=== PATIENT | female | born 1940 | race Caucasian/White ===

== ENCOUNTER 2018-12-10 11:39 | Inpatient (IN) | payer OTHER ==
[2018-12-10] MEDS ORDERED: NS 1,000 ML IV ONE (11:52)
[2018-12-10] MEDS ORDERED: ASPIRIN EC 325 MG TAB PO ONE ×2 (11:52→12:16)
[2018-12-10] MEDS ORDERED: DIAZEPAM 5 MG TAB PO ONE (11:52)
[2018-12-10] MEDS ORDERED: FAMOTIDINE 20 MG TAB PO ONE (11:52)
[2018-12-10] MEDS ORDERED: diphenhydrAMINE 25 MG CAP PO ONE ×2 (11:52→12:15)
[2018-12-10] MEDS ORDERED: FAMOTIDINE 20 MG TAB ONE (12:15)
[2018-12-10] MEDS ORDERED: DIAZEPAM 5 MG TAB ONE (12:16)
[2018-12-10 12:38] LABS: PLATELET COUNT 233 10^3/uL (150-400)
[2018-12-10 13:03] LABS: INR 1.04 (0.83-1.16); PROTIME(PATIENT) 13.2 SEC (12.0-15.0)
--- NOTE | 2018-12-10 13:52 | PDGENHP ---
History & Physical Chief Complaint: FAITH History of Present Illness: 78-year-old female with chronic mitral regurgitation status post endocarditis over 10 years ago with complaints of increasing dyspnea as well as progressive tricuspid regurgitation pulmonary hypertension. Known chronic atrial fibrillation. She presents today for preoperative left heart catheterization in anticipation of mitral valve replacement, tricuspid ring and Gilliam Maze procedure. Pertinent Past, Social, Family History: Past medical history: Chronic atrial fibrillation, mitral regurgitation, history of CVA, hyperlipidemia, obstructive sleep apnea, tricuspid regurgitation, moderate pulmonary hypertension. Relevant Physical Exam: Awake, alert, appropriate. No apparent distress. Lungs clear to auscultation anteriorly. Cardiac exam S1-S2, irregular regular. 3/6 systolic murmur at apex. Abdomen soft nontender. No evidence of lower extremity edema Cardiorespiratory Assessment: Rate controlled atrial fibrillation. Three of 6 systolic murmur at apex. Lungs clear to auscultation bilaterally
[2018-12-10] MEDS ORDERED: LIDOCAINE 1% 300 MG/30 ML SDV ONE (13:54)
[2018-12-10] MEDS ORDERED: IOPAMIDOL (ISOVUE-370) 150 ML BTL IV ONE (13:55)
[2018-12-10] MEDS ORDERED: fentaNYL 100 MCG/2 ML INJ ONE (13:55)
[2018-12-10] MEDS ORDERED: MIDAZOLAM 2 MG/2 ML VIAL ONE (13:55)
[2018-12-10] MEDS ORDERED: NITROGLYCERIN 0.4 MG BTL SL PRN (15:54)
[2018-12-10] MEDS ORDERED: OXYCODONE/APAP 5/325 TAB PO PRN (15:54)
[2018-12-10] MEDS ORDERED: ONDANSETRON 4 MG/2 ML VIAL IVP PRN (15:54)
[2018-12-10] MEDS ORDERED: ATROPINE SULFATE 1 MG/10 ML SYR IVP PRN (15:54)
[2018-12-10] MEDS ORDERED: CARBOXYMETHYLCELLULOSE 1% 0.4 ML DROPERETTE EACHEYE PRN (16:06)
--- NOTE | 2018-12-10 17:28 | CPIP ---
[f rep st] INVASIVE CARDIAC PROCEDURE DATE OF PROCEDURE: 12/10/2018 PROCEDURE PERFORMED: Diagnostic left heart catheterization. INDICATION FOR PROCEDURE: Preoperative left heart catheterization in anticipation of mitral valve dillon rgery, tricuspid valve surgery, and Gilliam-Maze IV procedure scheduled for tomorrow with Dr. Baxter. Patient also has a known history of coronary artery disease with previous PCI to the circumflex vesse l in approximately 2005. DESCRIPTION OF PROCEDURE: After informed consent was obtained, the patient was brought to the [facility] catheterization lab where she was prepped and draped in sterile fashion. Attempts to access the [facility] common femoral artery were unsuccessful, secondary to marked calcification of the right common fe moral artery. Attention was turned to the left common femoral artery. With assistance of my colleague, Dr. Gutierres, a successful cannulation of the 6-Vincentian sheath into the left common femoral artery was obtained wit hout difficulty. A JL4 catheter was used to take images of the left coronary anatomy in multiple pro jections. JL4 catheter was exchanged over a guidewire for a JR4 catheter. JR4 catheter was unable t o successfully cannulate the right coronary artery. The JR4 catheter was exchanged over a guidewire for a Elie right catheter. Elie right catheter was used to cannulate the right coronary jose elias ry. Images of the right coronary anatomy were obtained in multiple projections. Elie right cath eter was removed over a guidewire. Angled pigtail catheter was used to cross the aortic valve. Left ventriculogram was performed. LVEDP was assessed and aortic valve gradient was assessed. Angled pi gtail catheter was removed over a guidewire without complications. FINDINGS: 1. Left main normal size and caliber, trifurcates into left anterior descending, circumflex vessel, as well as small ramus branch. 2. Left main demonstrates no evidence of coronary disease. 3. Left anterior descending artery demonstrates mild luminal irregularities with no evidence of flow -limiting coronary disease. 4. The ramus intermedius branch is free of coronary artery disease. 5. Circumflex vessel demonstrates approximately 20% ostial stenosis. There is a patent stent to the mid circumflex vessel. The circumflex vessel is a dominant vessel. 6. The right coronary artery is a nondominant vessel. There is a 20% to 30% mid smooth RCA stenosis with no evidence of flow-limiting coronary disease. HEMODYNAMICS: LVEF 60% to 65%. Aortic valve gradient none. LVEDP 22 mmHg. CONCLUSIONS: 1. No flow-limiting coronary artery disease. 2. 20% ostial stenosis of the circumflex. 3. Patent stent to the mid circumflex vessel. 4. Mild luminal irregularities within the left anterior descending and nondominant right coronary ar hermann. 5. Normal left ventricular function with left ventricular ejection fraction of 60% to 65%. We will review images with Dr. Baxter prior to surgery. No indication for coronary bypass grafting in the setting of upcoming valve surgery tomorrow. Patient tolerated the procedure well. There were n o postoperative complications. Of note, left common femoral artery angiography demonstrates sheath p lacement at bifurcation. Manual pressure was obtained. /[id number]/MODL
--- NOTE | 2018-12-10 18:21 | PDGENHP ---
History and Physical - Chief Complaint MR, TR, AF - History of Present Illness 78F with MR, TR, AF and diminishing quality of life with planned MR repair/ replacement, TV repair, and Gilliam-Maze on 12/11/18 admitted in advance for risk stratification. Pt is s/p LHC without flow-limiting CAD. History Information - Allergies/Home Medication List Allergies/Adverse Reactions: No Known Allergies Allergy (Verified 12/04/18 10:17) Home Medications: Aspirin [Aspirin 81mg (*)] 162 mg PO DAILY 12/04/18 [Last Taken 12/09/18 08:00] Carboxymethylcellulose 1% [Refresh Celluvisc (*)] 1 drop EACHEYE DAILY PRN 12/04 [Last Taken 12/10/18 08:00] Enoxaparin [Lovenox 60 MG (*)] 60 mg SQ BID 12/04/18 [Last Taken 12/09/18 20:00] Herbals/Supplements -Info Only 1 ea PO DAILY 12/04/18 [Last Taken 12/09/18 08:00 ] [place]-3 Fatty Acids [Fish Oil 1000 mg (*)] 1,000 mg PO BID 12/04/18 [Last Taken 12/09/18 22:00] Simvastatin [Zocor] 20 mg PO HS 12/04/18 [Last Taken 12/09/18 22:00] Spironolactone [Aldactone 25 MG (*)] 12.5 mg PO DAILY 12/04/18 [Last Taken 12/09 08:00] Verapamil ER [Calan SR/ER 120MG (*)] 120 mg PO BID 12/04/18 [Last Taken 08:00] Warfarin Sodium [Coumadin 5MG (*)] 5 mg PO SUWE@18 12/04/18 [Last Taken 18:00] Warfarin Sodium [Coumadin 7.5MG (*)] 7.5 mg PO MOTUTHFRSA@18 12/04/18 [Last Taken 12/03/18 18:00] I have personally reviewed and updated: medical history, social history, surgical history - Past Medical History atrial fibrillation, coronary artery disease, CVA - Surgical History Reports: no pertinent surgical hx - Social History Smoking Status: Never smoked Alcohol Use: None Drug Use: None Review of Systems Review of Systems: ROS: 10pt was reviewed & negative except for what was stated in HPI & below Constitutional: Reports: weakness EENMT: Reports: no symptoms Cardiac: Reports: irregular heart rate Respiratory: Reports: shortness of breath Gastrointestinal: Reports: no symptoms Genitourinary: Reports: no symptoms Muscolosketal: Reports: no symptoms Skin: Reports: no symptoms Neurological: Reports: no symptoms Hematologic/Lymphatic: Reports: no symptoms Immunologic/Allergy: Reports: no symptoms Physical Exam Physical Exam: Temp Pulse Resp BP Pulse Ox 36.6 C 74 17 140/71 H 94 12/10/18 18:04 12/10/18 18:04 12/10/18 18:04 12/10/18 18:04 12/10/18 18:04 Constitutional: no apparent distress, appears nourished, not in pain Eyes: anicteric sclera Ears, Nose, Mouth, Throat: hearing normal Cardiovascular: systolic murmur, irregularly irregular Respiratory: no respiratory distress, no rales or rhonchi, clear to auscultation Gastrointestinal: soft, non-tender abdomen Skin: warm, normal color Musculoskeletal: full muscle strength Neurologic: AAOx3 Psychiatric: interacting appropriately, not anxious, not encephalopathic, thought process linear Lab Data & Imaging Review 12/10/18 12:00 12/10/18 12:00 WBC 5.52 10^3/uL (3.80-9.50) 12/10/18 12:00 RBC 4.20 10^6/uL (4.18-5.33) 12/10/18 12:00 Hgb 12.8 g/dL (12.6-16.3) 12/10/18 12:00 Hct 39.0 % (38.0-47.0) 12/10/18 12:00 MCV 92.9 fL (81.5-99.8) 12/10/18 12:00 MCH 30.5 pg (27.9-34.1) 12/10/18 12:00 MCHC 32.8 g/dL (32.4-36.7) 12/10/18 12:00 RDW 13.2 % (11.5-15.2) 12/10/18 12:00 Plt Count 233 10^3/uL (150-400) 12/10/18 12:00 MPV 9.7 fL (8.7-11.7) 12/10/18 12:00 Neut % (Auto) 66.7 % (39.3-74.2) 12/10/18 12:00 Lymph % (Auto) 20.3 % (15.0-45.0) 12/10/18 12:00 [place] % (Auto) 9.4 % (4.5-13.0) 12/10/18 12:00 Eos % (Auto) 2.9 % (0.6-7.6) 12/10/18 12:00 Baso % (Auto) 0.5 % (0.3-1.7) 12/10/18 12:00 Nucleat RBC Rel Count 0.0 % (0.0-0.2) 12/10/18 12:00 Absolute Neuts (auto) 3.68 10^3/uL (1.70-6.50) 12/10/18 12:00 Absolute Lymphs (auto) 1.12 10^3/uL (1.00-3.00) 12/10/18 12:00 Absolute Monos (auto) 0.52 10^3/uL (0.30-0.80) 12/10/18 12:00 Absolute Eos (auto) 0.16 10^3/uL (0.03-0.40) 12/10/18 12:00 Absolute Basos (auto) 0.03 10^3/uL (0.02-0.10) 12/10/18 12:00 Absolute Nucleated RBC 0.00 10^3/uL (0-0.01) 12/10/18 12:00 Immature Gran % 0.2 % (0.0-1.1) 12/10/18 12:00 Immature Gran # 0.01 10^3/uL (0.00-0.10) 12/10/18 12:00 PT 13.2 SEC (12.0-15.0) 12/10/18 12:00 INR 1.04 (0.83-1.16) 12/10/18 12:00 Sodium 135 mEq/L (135-145) 12/10/18 12:00 Potassium 4.3 mEq/L (3.5-5.2) 12/10/18 12:00 Chloride 104 mEq/L (97-110) 12/10/18 12:00 Carbon Dioxide 23 mEq/l (22-31) 12/10/18 12:00 Anion Gap 8 mEq/L (6-14) 12/10/18 12:00 BUN 23 mg/dL (7-23) 12/10/18 12:00 Creatinine 0.7 mg/dL (0.6-1.0) 12/10/18 12:00 Estimated GFR > 60 12/10/18 12:00 Glucose 91 mg/dL (70-100) 12/10/18 12:00 Hemoglobin A1c 5.2 % (4.0-6.0) 12/10/18 12:07 Estim Average Glucose 103 mg/dL (68-126) 12/10/18 12:07 Calcium 9.6 mg/dL (8.5-10.4) 12/10/18 12:00 Magnesium 2.1 mg/dL (1.6-2.3) 12/10/18 12:00 Triglycerides 52 mg/dL (35-135) 12/10/18 12:00 Cholesterol 170 mg/dL (140-220) 12/10/18 12:00 Cholesterol Risk Factr 0.4 (0.2-1.0) 12/10/18 12:00 LDL Cholesterol, Calc 68 mg/dL (80-100) L 12/10/18 12:00 LDL Risk Factor 0.4 (0.2-1.0) 12/10/18 12:00 VLDL Cholesterol 10 mg/dL (8-25) 12/10/18 12:00 Non-HDL Cholesterol 78 mg/dL (90-129) L 12/10/18 12:00 HDL Cholesterol 92 mg/dL (40-85) H 12/10/18 12:00 LDL/HDL Ratio 0.73 RATIO (1.00-3.22) L 12/10/18 12:00 Cholesterol/HDL Ratio 1.85 RATIO (1.00-4.44) 12/10/18 12:00 Patient ABO/Rh O POSITIVE 12/10/18 12:00 Antibody Screen NEGATIVE 12/10/18 12:00 Imaging Review: ECHO 09/04/18 09/10/2018: Normal size left ventricle. Borderline concentric LV hypertrophy. EF is 65 %. No regional wall motion abnormality. There is mild thickening of the mitral valve leaflets. Moderate to severe mitral regurgitation. Mild aortic cusp calcification is noted. There is no significant aortic valve regurgitation. No aortic valve stenosis is present. Moderate to severe tricuspid valve regurgitation. Right Ventricular systolic pressure is measured at 42 mmHg. No pericardial effusion. Visualized and Interpreted Chest x-ray results: Yes Chest X-Ray results: no infiltrate Visualized and Interpreted imaging results: Yes Interpretation: See LHC and carotid US reports Visualized and Interpreted EKG results: Yes EKG Interpretation: Positive for: other (AF) Assessment & Plan Assessment: 78F with MR/TR/AF Plan: MV repair/replace, TV repair, CM 4 on 12/11
[2018-12-10] MEDS ORDERED: CHLORHEXIDINE GLUC HIBICLENS 118 ML BTL TP SCH (21:00)
[2018-12-10] MEDS: VERAPAMIL ER 120 MG TAB PO SCH (21:36)
--- NOTE | 2018-12-11 05:45 | CPEKG ---
Test Reason : OPEN Blood Pressure : / mmHG Vent. Rate : 068 BPM Atrial Rate : 000 BPM P-R Int : 251 ms QRS Dur : 085 ms QT Int : 481 ms P-R-T Axes : 263 008 087 degrees QTc Int : 512 ms Atrial fibrillation Consider left ventricular hypertrophy Prolonged QT interval Confirmed by Denise Garcia ([id number]) on 12/11/2018 5:44:47 AM Referred By: Arnoldo Aguilera Confirmed By:Denise Garcia
[2018-12-11] MEDS ORDERED: niCARdipine/NACL 200 ML IV ONE (06:00)
[2018-12-11] MEDS ORDERED: MUPIROCIN 2% 22 GM OINT NS ONE (06:00)
[2018-12-11] MEDS ORDERED: AMINOCAPROIC ACID 5 GM/20 ML VIAL IV ONE (06:00)
[2018-12-11] MEDS ORDERED: CARDIOPLEGIC SOLUTION 1,052.8 ML PF ONE (06:00)
[2018-12-11] MEDS ORDERED: PHENYLEPHRINE HCL 50 MG in NS 250 ML IV ONE (06:00)
[2018-12-11] MEDS ORDERED: INSULIN REGULAR HUMAN 100 UNIT in NS 100 ML IV ONE (06:00)
[2018-12-11] MEDS ORDERED: NOREPINEPHRINE BITARTRATE 16 MG in NS 250 ML IV ONE (06:00)
[2018-12-11] MEDS ORDERED: CITRATE DEXTROSE SOLN 500 ML BAG MISC ONE (06:00)
[2018-12-11] MEDS ORDERED: MANNITOL 25% 12.5 GM/50 ML VIAL IVP ONE (06:00)
[2018-12-11] MEDS ORDERED: ceFAZolin 2 GM/DEXTROSE 100 ML IV ONE (06:00)
[2018-12-11] MEDS ORDERED: PROTAMINE SULFATE 50 MG/5 ML VIAL IVP ONE (06:17)
[2018-12-11] MEDS ORDERED: CALCIUM CHLORIDE 1 GM/10 ML INJ ONE ×3 (06:17→06:20)
[2018-12-11] MEDS ORDERED: niCARdipine/NACL/200 ML BAG IV ONE (06:18)
[2018-12-11] MEDS ORDERED: ceFAZolin 1 GM VIAL ONE (06:18)
[2018-12-11] MEDS ORDERED: MILRINONE/DEXTROSE/100 ML BAG IV ONE (06:18)
[2018-12-11] MEDS ORDERED: DOPamine/DEXTROSE 400 MG/250 ML BAG IV ONE (06:18)
[2018-12-11] MEDS ORDERED: ADENOSINE 6 MG/2 ML VIAL ONE (06:18)
[2018-12-11] MEDS ORDERED: NA BICARBONATE 50 MEQ/50 ML VIAL ONE (06:18)
[2018-12-11] MEDS ORDERED: NITROGLYCERIN/D5W 50 MG/250 ML BOTTLE IV ONE (06:18)
[2018-12-11] MEDS ORDERED: AMIODARONE HCL 150 MG/3 ML VIAL ONE ×2 (06:18→06:19)
[2018-12-11] MEDS ORDERED: HEPARIN 10,000 UNIT/10 ML MDV (1,000 UNIT/ML) ONE ×2 (06:18→06:19)
[2018-12-11] MEDS ORDERED: AMINOCAPROIC ACID 5 GM/20 ML VIAL ONE ×2 (06:18→06:19)
[2018-12-11] MEDS ORDERED: methylPREDNISolone SOD SUCC 1 GM/8 ML VIAL ONE (06:19)
[2018-12-11] MEDS ORDERED: CITRATE DEXTROSE SOLN 500 ML BAG ONE (06:19)
[2018-12-11] MEDS ORDERED: LIDOCAINE 2% 100 MG/5 ML SYR ONE (06:19)
[2018-12-11] MEDS ORDERED: SODIUM BICARBONATE 50 MEQ/50 ML SYR ONE (06:19)
[2018-12-11] MEDS ORDERED: ALBUMIN 5% 250 ML BOTTLE IV ONE (06:19)
[2018-12-11] MEDS ORDERED: MAGNESIUM SULFATE 1 GM/2 ML VIAL ONE (06:19)
[2018-12-11] MEDS ORDERED: LR 1,000 ML IV ONE (07:33)
--- NOTE | 2018-12-11 07:50 | PDHPUP ---
History & Physical Update H&P update statement: This history and physical update is based on an assessment of the patient which was completed after admission or registration (within 24 hours), but prior to the surgery/procedure. H&P update: H&P reviewed & patient examined, no change in patient's condition since H&P completed
--- NOTE | 2018-12-11 08:32 | PDANEPAE ---
ANE History of Present Illness here for MVR/TVR ANE Past Medical History - Cardiovascular History Hx Hypertension: Yes Hx Arrhythmias: Yes Hx Chest Pain: No Hx Coronary Artery / Peripheral Vascular Disease: Yes Hx CHF / Valvular Disease: Yes Hx Palpitations: No - Pulmonary History Hx COPD: No Hx Asthma/Reactive Airway Disease: No Hx Recent Upper Respiratory Infection: No Hx Oxygen in Use at Home: Yes O2 in Use at Home (L/minute): CPAP Hx Sleep Apnea: Yes Sleep Apnea Screening Result - Last Documented: Positive Pulmonary History Comment: KATHRYN uses oral device - Neurologic History Hx Cerebrovascular Accident: Yes Hx Seizures: No Hx Dementia: No Neurologic History Comment: 08/02 stroke - Endocrine History Hx Diabetes: No - Renal History Hx Renal Disorders: No - Liver History Hx Hepatic Disorders: No - Neurological & Psychiatric Hx Hx Neurological and Psychiatric Disorders: No - Cancer History Hx Cancer: No - Congenital Disorder History Hx Congenital Disorders: No - GI History Hx Gastrointestinal Disorders: No - Other Health History Other Health History: right leg has cut from shaving. bruises easily - Chronic Pain History Chronic Pain: Yes (lower back pain) - Surgical History Prior Surgeries: cataract L eye 05/12. cataract on r 05/04 ANE Review of Systems Review of systems is: negative Review of Systems: - Exercise capacity METS (RN): 4 METS ANE Patient History - Allergies Allergies/Adverse Reactions: No Known Allergies Allergy (Verified 12/11/18 07:43) - Home Medications Home medications: home medication list seen and reviewed Home Medications: Aspirin [Aspirin 81mg (*)] 162 mg PO DAILY 12/04/18 [Last Taken 12/09/18 08:00] Carboxymethylcellulose 1% [Refresh Celluvisc (*)] 1 drop EACHEYE DAILY PRN 12/04 [Last Taken 12/10/18 08:00] Enoxaparin [Lovenox 60 MG (*)] 60 mg SQ BID 12/04/18 [Last Taken 12/09/18 20:00] Herbals/Supplements -Info Only 1 ea PO DAILY 12/04/18 [Last Taken 12/09/18 08:00 ] [place]-3 Fatty Acids [Fish Oil 1000 mg (*)] 1,000 mg PO BID 12/04/18 [Last Taken 12/09/18 22:00] Simvastatin [Zocor] 20 mg PO HS 12/04/18 [Last Taken 12/09/18 22:00] Spironolactone [Aldactone 25 MG (*)] 12.5 mg PO DAILY 12/04/18 [Last Taken 12/09 08:00] Verapamil ER [Calan SR/ER 120MG (*)] 120 mg PO BID 12/04/18 [Last Taken 08:00] Warfarin Sodium [Coumadin 5MG (*)] 5 mg PO SUWE@18 12/04/18 [Last Taken 18:00] Warfarin Sodium [Coumadin 7.5MG (*)] 7.5 mg PO MOTUTHFRSA@18 12/04/18 [Last Taken 12/03/18 18:00] - NPO status NPO Status: no food or drink >8 hours NPO Since - Liquids (Date): 12/11/18 NPO Since - Liquids (Time): 00:01 NPO Since - Solids (Date): 12/11/18 NPO Since - Solids (Time): 00:01 - Smoking Hx Smoking Status: Never smoked - Alcohol Use Alcohol Use: None - Family Anes Hx Family Hx Anesthesia Complications: none ANE Labs/Vital Signs - Labs Result Diagrams: 12/10/18 12:00 12/10/18 12:00 - Vital Signs Vital Signs: reviewed preoperatively; see RN documention for details Blood Pressure: 133/68 Heart Rate: 73 Respiratory Rate: 18 O2 Sat (%): 92 Height: 162.56 cm Weight: 68.6 kg ANE Physical Exam - Airway Neck exam: FROM Mallampati Score: Class 1 Mouth exam: normal dental/mouth exam - Pulmonary Pulmonary: no respiratory distress - Cardiovascular Cardiovascular: irregularly irregular - ASA Status ASA Status: III ANE Anesthesia Plan Anesthesia Plan: general endotracheal anesthesia Lines/Monitors: arterial line, central line, BECKY
[2018-12-11] MEDS ORDERED: MIDAZOLAM 2 MG/2 ML VIAL IVP ONE (08:40)
[2018-12-11] MEDS ORDERED: MIDAZOLAM 2 MG/2 ML VIAL ONE (08:42)
[2018-12-11] MEDS ORDERED: fentaNYL 250 MCG/5 ML INJ ONE (08:43)
[2018-12-11] MEDS ORDERED: PROPOFOL/EMULSION 500 MG/50 ML BOTTLE IV ONE (08:44)
[2018-12-11] MEDS ORDERED: ROCURONIUM 100 MG/10 ML VIAL ONE (08:44)
[2018-12-11] MEDS ORDERED: MINERAL OIL 10 ML VIAL ONE (09:08)
--- NOTE | 2018-12-11 10:41 | PDMN ---
Medical Necessity Medical necessity: [facility] [place] [id number] Cardiac Valve Replacement or Repair, 5 days: 78 yo s /p heart cath, pending scheduled mitral valve repair, JOHNATHAN BOOTH only
[2018-12-11] MEDS ORDERED: fentaNYL 100 MCG/2 ML INJ ONE (12:20)
[2018-12-11] MEDS ORDERED: ACETAMINOPHEN 650 MG SUPP PR PRN (12:41)
[2018-12-11] MEDS ORDERED: POTASSIUM Cl (KCl) 50 ML IV PRN (12:41)
[2018-12-11] MEDS ORDERED: PANTOPRAZOLE SODIUM 40 MG VIAL IVP ONE (12:41)
[2018-12-11] MEDS ORDERED: LACTULOSE 20 GM/30 ML UDCUP PO PRN (12:41)
[2018-12-11] MEDS ORDERED: BISACODYL 10 MG SUPP PR PRN (12:41)
[2018-12-11] MEDS ORDERED: MAGNESIUM HYDROXIDE 30 ML UDCUP PO PRN (12:41)
[2018-12-11] MEDS ORDERED: ONDANSETRON DISINTEGRATING 4 MG TAB PO PRN (12:41)
[2018-12-11] MEDS ORDERED: SODIUM CL NASAL 45 ML BTL EACHNARE PRN (12:41)
[2018-12-11] MEDS ORDERED: MEPERIDINE 25 MG/0.5 ML AMP IVP PRN (12:41)
[2018-12-11] MEDS ORDERED: CEPACOL LOZENGE PO PRN (12:41)
[2018-12-11] MEDS ORDERED: POLYETHYLENE GLYCOL 3350 17 GM PKT PO PRN (12:41)
[2018-12-11] MEDS ORDERED: METOCLOPRAMIDE 10 MG/2 ML VIAL IVP PRN (12:41)
[2018-12-11] MEDS ORDERED: D50W 25 GM/50 ML SYR IVP PRN (12:41)
[2018-12-11] MEDS ORDERED: niCARdipine/NACL 200 ML IV PRN (12:41)
[2018-12-11] MEDS ORDERED: NS 1,000 ML IV SCH (12:45)
[2018-12-11] MEDS ORDERED: INSULIN REGULAR HUMAN 100 UNIT in NS 100 ML IV SCH (13:00)
[2018-12-11] MEDS: VERAPAMIL ER 120 MG TAB PO SCH (13:00)
--- NOTE | 2018-12-11 13:10 | GOP ---
[f rep st] OPERATIVE REPORT DATE OF OPERATION: 12/11/2018 SURGEON: Sly Baxter DO SAWMILL TALLY CLERK: Yosef ANESTHESIOLOGIST: Rigo. PREOPERATIVE DIAGNOSIS: Congestive heart failure with severe mitral tricuspid insufficiency and long standing persistent atrial fibrillation. POSTOPERATIVE DIAGNOSIS: Congestive heart failure with severe mitral tricuspid insufficiency and jaja gstanding persistent atrial fibrillation. PROCEDURE PERFORMED: 1. Mitral valve repair with a #28 Physio II annuloplasty ring and primary closure of septal perforat ion from healed endocarditis. 2. Tricuspid valve annuloplasty with a 28 mm Rm annuloplasty ring. 3. Gilliam-Maze IV biatrial Maze with testing and sensing. FINDINGS: DESCRIPTION OF PROCEDURE: Patient was consented, brought to the operating room, intubated. Monitori ng lines were placed. She was prepped and draped in sterile classical manner. Sternotomy was perfor med. She was heparinized cannulated with bicaval cannulae and tapes. We then cardioverted her to no rmal sinus rhythm; however, she would not stay in sinus rhythm. We then just tested for exit block o nly with both veins showing no evidence of exit block. We then initiated bypass and then performed r adiofrequency ablation of both pulmonary veins on pump with 3 overlapping lines each line final being less than 5 seconds, with approximately 9 to 12 ablations per pulmonary vein. I then arrested the patient, excised tip of the appendage, and performed ablation across the left atr ium into the left superior pulmonary vein until it was less than 5 seconds. A 50 mm atrial clip was placed across the base of the appendage. We then marked the terminus of the right and left coronary systems on the coronary sinus. We then exposed the left atrium incising all the way over almost to t he pulmonary venous system so that it was more of a cut. Then, an ablation line on the roof and floo r, the completion of that was done with radiofrequency then. We then performed cryoablation of the c oronary sinus and overlapped that for 3 minutes with an endocardial isthmus line. We then inspected the mitral valve. There was evidence of perforation in P2 with 2 small jets that w ere emanating from that. They were closed with 5-0 Prolene. We then placed annuloplasty suture ring s and sized the patient for a 28 mm ring, which was secured with Cor-Knots. The left atrium was clos ed. Rewarming was begun. We then secured caval tapes and did a vertical atriotomy consistent with C ox-4 lesion set and performed the radiofrequency ablation on the free wall, superior and inferior lynda a cava and cryoablation for 2 minutes across the isthmus with the cross-clamp off. We then secured a 28 mm ring with Cor-Knots. with evidence of no regurgitation. The right atrium was closed while the patient was rewarmed with the heart beating in Trendelenburg. We then de-aired the patient through the apex and ascending aorta, and when no further air was identi fied, she was weaned from bypass without difficulty. Both valves were competent without any regurgit ation and no NATE. Heparin was reversed with protamine. Cannula was removed and oversewn. The patie nt was in sinus rhythm, but required atrial pacing. She was returned to ICU in stable condition. /[id number]/MODL
--- NOTE | 2018-12-11 13:23 | POSTANESTH ---
Post Anesthetic Evaluation Cardiovascular Status: Normal, Stable Respiratory Status: Requires Airway Assist Level of Consciousness/Mental Status: Moderately Sleepy Pain Control: Adequate, Prn Tx Ordered Nausea/Vomiting Control: Adequate, Prn Tx Ordered Complications Possibly Related to Anesthesia: None Noted
[2018-12-11] MEDS: ALBUMIN 5% 250 ML IV PRN ×2 (13:30→13:56)
[2018-12-11] MEDS: ceFAZolin 2 GM/DEXTROSE 100 ML IV SCH ×2 (13:52→22:05)
[2018-12-11] MEDS: ONDANSETRON 4 MG/2 ML VIAL IVP PRN ×2 (14:52→22:41)
[2018-12-11] MEDS: fentaNYL 100 MCG/2 ML INJ IVP PRN ×2 (16:43→20:24)
--- NOTE | 2018-12-11 21:06 | GCON ---
[f rep st] CONSULTATION MEAT MOLDER CONSULTATION. REFERRING PHYSICIAN: Sly Baxter DO HISTORY OF PRESENT ILLNESS: I was asked to see patient by Dr. Sly Baxter. The patient was examined postoperatively after receiving mitral valve and tricuspid valve replacements, as well as a Gilliam maze . The patient is a 78-year-old white female with a past medical history of arthritis, atrial fibrillati on, stroke, coronary artery disease, endocarditis, hyperlipidemia, mitral regurgitation, obstructive sleep apnea for which she is using an oral device, and tricuspid regurgitation. Again, she is examin ed postoperatively. The patient is currently sedated and on mechanical ventilation. All history is gleaned from the medical record. Prior to surgery, she had been noting a steady decline in exertiona l activities with worsening breathlessness. REVIEW OF SYSTEMS: Ten-point review of systems was attempted but unable to be performed secondary to sedation and mechanical ventilation. FAMILY HISTORY: Noncontributory. PAST MEDICAL HISTORY: Again, significant for obstructive sleep apnea, tricuspid regurgitation, dunia l regurgitation, hyperlipidemia, uterine fibroids, endocarditis, coronary artery disease, stroke, atr ial fibrillation, arthritis. MEDICATIONS: At home include Coumadin, verapamil, spironolactone, simvastatin, probiotic, fluticason e nasal spray, fish oil, calcium, aspirin, amoxicillin. ALLERGIES: No known allergies to medications. SOCIAL HISTORY: Lifelong never smoker. No significant alcohol use. She is . Her son is at her bedside. She has excellent family support. PHYSICAL EXAM: VITAL SIGNS: Blood pressure is 115/52, pulse 72, respirations 12, temperature 34.4, oxygen saturation 100% on 40%. GENERAL: She is a well-developed, well-nourished, elderly white fema le who is sedated and on mechanical ventilation. HEENT: Eyes are YU. EOMI. Throat: Endotrachea l tube is in good position. NECK: Supple. No cervical adenopathy. HEART: Regular rate and rhythm with a 2/6 systolic murmur at left sternal border without radiation. LUNGS: Diminished breath soun ds but no wheeze. ABDOMEN: Soft, nontender. Bowel sounds are present in all 4 quadrants. EXTREMIT IES: No clubbing, cyanosis, or edema. LABORATORIES: White count is 5.5, hemoglobin 12, hematocrit 39, platelet count 233. INR is 1.04. S odium 135, potassium 4.3, chloride 104, CO2 23, BUN 23, creatinine 0.7, glucose is 91. IMAGING: Chest x-ray: Lungs are clear. Endotracheal tube is in good position. Right internal jugu lar catheter is in good position. IMPRESSION: 1. Atrial fibrillation. 2. Mitral and tricuspid regurgitation. 3. Status post mitral valve replacement, tricuspid valve replacement, and Gilliam maze procedure. 4. Acute respiratory failure secondary to above. 5. History of arthritis. 6. History of stroke. 7. Coronary artery disease. 8. Hyperlipidemia. 9. Obstructive sleep apnea for which she uses an oral device. RECOMMENDATIONS: 1. Wean patient from mechanical ventilation as tolerated. 2. DVT and PE prophylaxis, holding anticoagulation for now. 3. Stress ulcer prophylaxis. 4. Aggressive blood sugar control. 5. PT and OT. 6. Early ambulation. 7. Adequate nutrition. 8. Close cardiovascular monitoring. /[id number]/MODL
[2018-12-11] MEDS: MUPIROCIN 2% 22 GM OINT NS SCH (22:05)
[2018-12-11] MEDS: ACETAMINOPHEN 325 MG TAB PO PRN (22:40)
[2018-12-11] MEDS: HYDROCODONE/APAP 5/325 TAB PO PRN (22:40)
[2018-12-11] MEDS: KETOROLAC 15 MG/1 ML SDV IVP PRN (22:41)
[2018-12-12] MEDS: KETOROLAC 15 MG/1 ML SDV IVP PRN (05:06)
[2018-12-12] MEDS: ceFAZolin 2 GM/DEXTROSE 100 ML IV SCH ×2 (05:07→16:42)
[2018-12-12] MEDS: HYDROCODONE/APAP 5/325 TAB PO PRN ×2 (05:07→09:10)
[2018-12-12] MEDS: ACETAMINOPHEN 325 MG TAB PO PRN ×4 (05:07→21:29)
[2018-12-12 05:58] LABS: PLATELET COUNT 132 10^3/uL (150-400)
[2018-12-12 05:59] LABS: INR 1.16 (0.83-1.16); PROTIME(PATIENT) 14.3 SEC (12.0-15.0)
[2018-12-12] MEDS: HEPARIN 5,000 UNIT/0.5 ML INJ SC SCH ×3 (06:21→21:03)
--- NOTE | 2018-12-12 07:04 | SOAPPROG ---
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 -pre-op EF 65% -CT to bulbs, FC/AL out today -routine TTE closer to discharge Longstanding persistent atrial fibrillation s/p CM4 -underlying rhythm junctional in 30's, BB not appropriate at this time -plan for thromboprophylaxis with coumadin, INR goal 2-3, duration pending stability of SR -previous Coumadin schedule 5 mg SUWE/7.5 mg rest of the week -plan to start coumadin today at 2 mg Acute expected blood loss anemia -stable, 1 pRBC transfused Acute Kidney Injury, stage 1 - preop creatinine 0.7, today 1.1; UOP 325 cc/12 hr - hold nephrotoxic meds-toradol, ancef to q12 - q4 K+ and 1 L NS over 8 hrs Stable CAD -noncritical, patent stent in LCx, no intervention necessary -secondary prevention with ASA/BB/statin when appropriate DVT ppx -heparin until INR 1.8 -SCDs, early ambulation PTOT -to eval and treat Dispo Keep in ICU given ERIKA, pacing requirements Subjective: Doing well. Objective: General: NAD, sitting upright HEENT: CVL IJ, MMM Respiratory: nasal cannula oxygen , no wheezes, crackles Cardiac: paced, no m/r/g, no edema GI: soft, nt, nd : rapp to be removed today Incisions: sternum - CDI Chest tubes: 910/325 serosang Vital Signs Temp Pulse Resp BP Pulse Ox 37.8 C 74 20 115/53 L 94 12/12/18 06:50 12/12/18 06:50 12/12/18 06:50 12/12/18 06:50 12/12/18 06:50 Laboratory Results 12/12/18 05:17 12/12/18 05:17 12/11/18 12/12/18 12/13/18 05:59 05:59 05:59 Intake Total 950 1760 Output Total 1635 Balance 950 125 PT 14.3 SEC (12.0-15.0) 12/12/18 05:17 INR 1.16 (0.83-1.16) 12/12/18 05:17 ICD10 Worksheet Patient Problems: Problems Problem Status Onset Acute blood loss anemia Acute S/P ablation of atrial fibrillation Acute ~12/11/18 S/P left atrial appendage ligation Acute ~12/11/18 S/P mitral valve repair Acute ~12/11/18 S/P tricuspid valve repair Acute ~12/11/18 CAD (coronary artery disease) Chronic Chronic anticoagulation Chronic Longstanding persistent atrial fibrillation Chronic Mitral valve insufficiency Chronic KATHRYN (obstructive sleep apnea) Chronic Presence of stent in coronary artery Chronic Tricuspid valve insufficiency Chronic
[2018-12-12] MEDS ORDERED: NS 1,000 ML IV SCH (07:45)
[2018-12-12] MEDS: ASPIRIN 81 MG CHEWABLE TAB PO SCH (07:59)
[2018-12-12] MEDS: PANTOPRAZOLE SODIUM 40 MG TAB PO SCH (08:00)
[2018-12-12] MEDS: MUPIROCIN 2% 22 GM OINT NS SCH ×2 (08:01→20:56)
--- NOTE | 2018-12-12 09:20 | PDINTPN ---
Industrial Controller Progress Note Assessment/Plan: Assessment/plan: * Atrial fibrillation-resolved * Mitral and tricuspid regurgitation * Status post mitral valve and tricuspid valve replacement with Gilliam Maze * Pain-well controlled * Obstructive sleep apnea-continues to use oral device * Respiratory-stable off mechanical ventilation. Still requiring supplemental oxygen -wean as tolerated * Nutrition * PT/OT-ambulation today Subjective: Sitting up in chair. Resting comfortably. Pain well tolerated. Denies being breathless. Objective: Vital Signs Temp Pulse Resp BP Pulse Ox 37.1 C 74 19 121/50 H 94 12/12/18 07:19 12/12/18 07:19 12/12/18 07:19 12/12/18 07:19 12/12/18 07:19 Laboratory Results 12/12/18 05:17 12/12/18 05:17 12/11/18 12/12/18 12/13/18 05:59 05:59 05:59 Intake Total 950 1760 Output Total 1635 60 Balance 950 125 -60 PT 14.3 SEC (12.0-15.0) 12/12/18 05:17 INR 1.16 (0.83-1.16) 12/12/18 05:17 - Time Spent With Patient Time Spent With Patient: 35 min of time spent with patient, over 1/2 involved with coordination of care or counseling. Case discussed with nursing Physical Exam - Physical Exam General Appearance: alert, no apparent distress EENT: PERRL/EOMI Neck: non-tender, supple Respiratory: chest non-tender, lungs clear, normal breath sounds Cardiac/Chest: normal peripheral pulses, regular rate, rhythm Peripheral Pulses: 2+: carotid (R), carotid (L), femoral (R), femoral (L), dorsalis-pedis (R), dorsalis-pedis (L) Abdomen: normal bowel sounds, non-tender, soft Pelvic Exam: deferred Rectal: deferred Skin: warm/dry Extremities: non-tender, normal inspection Neuro/Psych: no motor/sensory deficits, alert, normal mood/affect, oriented x 3 ICD10 Worksheet Patient Problems: Problems Problem Status Onset Acute blood loss anemia Acute S/P ablation of atrial fibrillation Acute ~12/11/18 S/P left atrial appendage ligation Acute ~12/11/18 S/P mitral valve repair Acute ~12/11/18 S/P tricuspid valve repair Acute ~12/11/18 Asymmetric septal hypertrophy Chronic CAD (coronary artery disease) Chronic Chronic anticoagulation Chronic Longstanding persistent atrial fibrillation Chronic Mitral valve insufficiency Chronic KATHRYN (obstructive sleep apnea) Chronic Presence of stent in coronary artery Chronic Tricuspid valve insufficiency Chronic
--- NOTE | 2018-12-12 12:01 | ASMTCASEMG ---
Living Arrangements What is your living Answers: Alone arrangement? Who do you live with? Type Of Residence What kind of residence do Answers: Apartment you live in? Discharge Plan Comments Coordination Status Comments Notes: Patient is a 78yo female with chronic mitral regurgitation status post endocarditis over 10 years ago, who comes for preoperative left heart catheterization prior to mitral valve replacement, tricuspid ring and escalante maze procedure. PT/OT have been ordered for the patient. D/C plan TBD. CM will follow. Date Signed: 12/12/2018 12:00 PM Electronically Signed By:Kajal Wallis LCSW
[2018-12-12] MEDS: traMADol 50 MG TAB PO PRN ×2 (15:44→21:29)
[2018-12-12] MEDS ORDERED: WARFARIN SODIUM 2 MG TAB PO ONE (16:00)
[2018-12-12] MEDS ORDERED: FUROSEMIDE 40 MG/4 ML VIAL IVP ONE (17:15)
[2018-12-12] MEDS ORDERED: ALBUMIN 5% 250 ML IV ONE (18:00)
[2018-12-12] MEDS: WHITE WINE 120 ML BOTTLE PO SCH (19:41)
[2018-12-12] MEDS ORDERED: NS 1,000 ML IV ONE (21:00)
[2018-12-13] MEDS: ACETAMINOPHEN 325 MG TAB PO PRN ×2 (02:51→08:53)
[2018-12-13] MEDS: traMADol 50 MG TAB PO PRN ×2 (04:13→09:40)
[2018-12-13] MEDS: ceFAZolin 2 GM/DEXTROSE 100 ML IV SCH (04:15)
[2018-12-13 04:52] LABS: INR 1.38 (0.83-1.16); PROTIME(PATIENT) 16.4 SEC (12.0-15.0)
[2018-12-13] MEDS: HEPARIN 5,000 UNIT/0.5 ML INJ SC SCH ×3 (06:00→21:38)
--- NOTE | 2018-12-13 07:21 | SOAPPROG ---
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 -pre-op EF 65% -routine TTE closer to discharge Longstanding persistent atrial fibrillation s/p CM4 -underlying rhythm junctional in 30's, BB not appropriate at this time -plan for thromboprophylaxis with coumadin, INR goal 2-3, duration pending stability of SR -continue coumadin (started 12/12) Acute expected blood loss anemia -stable, 1 pRBC transfused Acute pulmonary insufficiency -requiring 5L NC -history of 2nd hand smoke exposure -may be splinting and not taking deep breaths d/t CT Acute Kidney Injury - preop creatinine 0.7, 1.1->1.4->1.3 - hold nephrotoxic meds Stable CAD -noncritical, patent stent in LCx, no intervention necessary -secondary prevention with ASA/BB/statin when appropriate DVT ppx -heparin until INR 1.8 -SCDs, early ambulation PTOT -to eval and treat Dispo Will d/w transfer to SDU/PCU Likely CT removal today Subjective: Pain controlled. Objective: Vital Signs Temp Pulse Resp BP Pulse Ox 36.7 C 66 20 111/67 91 L 12/13/18 04:00 12/13/18 06:00 12/13/18 06:00 12/13/18 06:00 12/13/18 06:00 Laboratory Results 12/13/18 04:20 12/13/18 04:20 12/12/18 12/13/18 12/14/18 05:59 05:59 05:59 Intake Total 1760 3459 Output Total 1635 965 Balance 125 2494 PT 16.4 SEC (12.0-15.0) H 12/13/18 04:20 INR 1.38 (0.83-1.16) H 12/13/18 04:20 General: NAD, sitting upright HEENT: CVL IJ, MMM Respiratory: nasal cannula oxygen 5l, no wheezes, crackles Cardiac: A paced, no m/r/g, trace edema GI: soft, nt, nd : rapp to be removed today Incisions: sternum - CDI Chest tubes: 30/40 & 35/50 serosang ICD10 Worksheet Patient Problems: Problems Problem Status Onset Acute blood loss anemia Acute S/P ablation of atrial fibrillation Acute ~12/11/18 S/P left atrial appendage ligation Acute ~12/11/18 S/P mitral valve repair Acute ~12/11/18 S/P tricuspid valve repair Acute ~12/11/18 Asymmetric septal hypertrophy Chronic CAD (coronary artery disease) Chronic Chronic anticoagulation Chronic Longstanding persistent atrial fibrillation Chronic Mitral valve insufficiency Chronic KATHRYN (obstructive sleep apnea) Chronic Presence of stent in coronary artery Chronic Tricuspid valve insufficiency Chronic
[2018-12-13] MEDS: PANTOPRAZOLE SODIUM 40 MG TAB PO SCH (08:47)
[2018-12-13] MEDS: ASPIRIN 81 MG CHEWABLE TAB PO SCH (08:47)
[2018-12-13] MEDS: SENNOSIDES/DOCUSATE SODIUM TAB PO SCH ×2 (08:48→21:38)
[2018-12-13] MEDS: MUPIROCIN 2% 22 GM OINT NS SCH ×2 (08:49→21:39)
[2018-12-13] MEDS ORDERED: FUROSEMIDE 20 MG/2 ML VIAL IVP ONE (09:35)
--- NOTE | 2018-12-13 15:44 | ASMTCMCOM ---
CM Note CM Note Notes: Spoke with patient today and she would like to go to [facility] for SNF rehab. She prefers this program because it is close to her home and her friends and family can come visit. Patient's second choice is [facility]. Referrals have been sent to both facilities. CM will follow. Date Signed: 12/13/2018 03:43 PM Electronically Signed By:Kajal Wallis LCSW
[2018-12-13] MEDS ORDERED: WARFARIN SODIUM 2 MG TAB PO ONE (16:00)
[2018-12-13] MEDS: WHITE WINE 120 ML BOTTLE PO SCH (17:40)
[2018-12-14] MEDS: HEPARIN 5,000 UNIT/0.5 ML INJ SC SCH ×3 (05:50→21:36)
[2018-12-14 06:24] LABS: INR 1.16 (0.83-1.16); PROTIME(PATIENT) 14.3 SEC (12.0-15.0)
[2018-12-14] MEDS ORDERED: FUROSEMIDE 20 MG/2 ML VIAL IVP ONE ×2 (07:32→15:00)
--- NOTE | 2018-12-14 07:42 | SOAPPROG ---
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 -pre-op EF 65% -TTE ordered for Sunday Longstanding persistent atrial fibrillation s/p CM4 -underlying rhythm junctional in 30's, a-paced, BB not appropriate at this time -plan for thromboprophylaxis with coumadin, INR goal 2-3, duration pending stability of SR -continue coumadin (started 12/12) Acute expected blood loss anemia -stable, 1 pRBC transfused Acute pulmonary insufficiency, improved -requiring 3L NC from 5L -CXR congested 12/13 Acute Kidney Injury, improved - preop creatinine 0.7, 1.1->1.4->1.3->0.8 - hold nephrotoxic meds Hypervolemic hyponatremia -needs diuretic and fluid restriction Stable CAD -noncritical, patent stent in LCx, no intervention necessary -secondary prevention with ASA/BB/statin when appropriate DVT ppx -heparin until INR 1.8 -SCDs, early ambulation, coumadin PTOT -rec SNF, agree Dispo Cont fluid restriction 1.5-2L 20 mg IV lasix now w repeat this afternoon Coumadin 5 today Repeat CBC/BMP/INR/CXR tomorrow; if Cr normal tomorrow - will dc q6 K+ Anticipate EP consult tomorrow or Sunday re: PPM Will d/w Dr. Li SDU vs. PCU status Subjective: Fatigued going from chair to bathroom Objective: Vital Signs Temp Pulse Resp BP Pulse Ox 37.2 C 66 14 104/55 L 94 12/14/18 04:00 12/14/18 04:00 12/14/18 04:00 12/14/18 04:00 12/14/18 04:00 Laboratory Results 12/13/18 04:20 12/14/18 05:50 12/13/18 12/14/18 12/15/18 05:59 05:59 05:59 Intake Total 3459 1440 Output Total 965 935 Balance 2494 505 PT 14.3 SEC (12.0-15.0) 12/14/18 05:32 INR 1.16 (0.83-1.16) 12/14/18 05:32 General: NAD, sitting upright HEENT: CVL IJ, MMM Respiratory: nasal cannula oxygen 3L, no wheezes, crackles Cardiac: A paced 66, no m/r/g, trace edema GI: soft, nt, nd : rapp out Incisions: sternum - CDI Chest tubes: out ICD10 Worksheet Patient Problems: Problems Problem Status Onset Acute blood loss anemia Acute S/P ablation of atrial fibrillation Acute ~12/11/18 S/P left atrial appendage ligation Acute ~12/11/18 S/P mitral valve repair Acute ~12/11/18 S/P tricuspid valve repair Acute ~12/11/18 Asymmetric septal hypertrophy Chronic CAD (coronary artery disease) Chronic Chronic anticoagulation Chronic Longstanding persistent atrial fibrillation Chronic Mitral valve insufficiency Chronic KATHRYN (obstructive sleep apnea) Chronic Presence of stent in coronary artery Chronic Tricuspid valve insufficiency Chronic
[2018-12-14] MEDS: SENNOSIDES/DOCUSATE SODIUM TAB PO SCH ×2 (08:42→21:37)
[2018-12-14] MEDS: ASPIRIN 81 MG CHEWABLE TAB PO SCH (08:42)
[2018-12-14] MEDS: PANTOPRAZOLE SODIUM 40 MG TAB PO SCH (08:43)
--- NOTE | 2018-12-14 08:46 | PDINTPN ---
Plate Cutter Progress Note Assessment/Plan: Assessment/plan: * Atrial fibrillation-resolved * Mitral and tricuspid regurgitation * Status post mitral valve and tricuspid valve replacement with Gilliam Maze * Pain-well controlled * Hyponatremia * Obstructive sleep apnea-continues to use oral device * Respiratory-stable off mechanical ventilation. Still requiring supplemental oxygen -wean as tolerated * Nutrition * PT/OT-ambulating slowly with physical therapy Subjective: Sitting up in chair. Fatigued after working with physical therapy. Pain well tolerated. Objective: Vital Signs Temp Pulse Resp BP Pulse Ox 36.4 C 66 18 113/56 L 93 12/14/18 08:00 12/14/18 08:00 12/14/18 08:00 12/14/18 08:00 12/14/18 08:00 Laboratory Results 12/13/18 04:20 12/14/18 05:50 12/13/18 12/14/18 12/15/18 05:59 05:59 05:59 Intake Total 3459 1440 Output Total 965 935 Balance 2494 505 PT 14.3 SEC (12.0-15.0) 12/14/18 05:32 INR 1.16 (0.83-1.16) 12/14/18 05:32 - Time Spent With Patient Time Spent With Patient: 35 min of time spent with patient, over 1/2 involved with coordination of care or counseling. Case discussed with nursing Physical Exam - Physical Exam General Appearance: alert EENT: PERRL/EOMI Neck: non-tender, supple Respiratory: crackles (Few basilar), No respiratory distress, No wheezing Cardiac/Chest: normal peripheral pulses, regular rate, rhythm, systolic murmur Peripheral Pulses: 2+: carotid (R), carotid (L), femoral (R), femoral (L), dorsalis-pedis (R), dorsalis-pedis (L) Abdomen: normal bowel sounds, non-tender, soft Pelvic Exam: deferred Rectal: deferred Skin: warm/dry Extremities: non-tender, normal inspection Neuro/Psych: no motor/sensory deficits, alert, normal mood/affect, oriented x 3 ICD10 Worksheet Patient Problems: Problems Problem Status Onset Acute blood loss anemia Acute S/P ablation of atrial fibrillation Acute ~12/11/18 S/P left atrial appendage ligation Acute ~12/11/18 S/P mitral valve repair Acute ~12/11/18 S/P tricuspid valve repair Acute ~12/11/18 Asymmetric septal hypertrophy Chronic CAD (coronary artery disease) Chronic Chronic anticoagulation Chronic Longstanding persistent atrial fibrillation Chronic Mitral valve insufficiency Chronic KATHRYN (obstructive sleep apnea) Chronic Presence of stent in coronary artery Chronic Tricuspid valve insufficiency Chronic
[2018-12-14] MEDS: traMADol 50 MG TAB PO PRN (10:26)
[2018-12-14] MEDS: MUPIROCIN 2% 22 GM OINT NS SCH (10:28)
[2018-12-14] MEDS ORDERED: WARFARIN SODIUM 5 MG TAB PO ONE (16:00)
[2018-12-14] MEDS: WHITE WINE 120 ML BOTTLE PO SCH (21:37)
[2018-12-14] MEDS: OMEGA-3 FATTY ACIDS 1,000 MG CAP PO SCH (21:37)
[2018-12-15] MEDS: traMADol 50 MG TAB PO PRN (04:32)
[2018-12-15 05:09] LABS: INR 1.1 (0.83-1.16); PROTIME(PATIENT) 13.8 SEC (12.0-15.0)
[2018-12-15] MEDS: HEPARIN 5,000 UNIT/0.5 ML INJ SC SCH (05:47)
--- NOTE | 2018-12-15 07:32 | SOAPPROG ---
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 chronotropic incompetence Acute expected blood loss anemia -stable, 1 pRBC transfused Acute pulmonary insufficiency, improved -requiring 3L NC from 5L -CXR congested 12/13, 12/15 Acute Kidney Injury, improved - resolved Hypervolemic hyponatremia -needs aggressive diuretic and fluid restriction Stable CAD -noncritical, patent stent in LCx, no intervention necessary -secondary prevention with ASA/BB/statin when appropriate DVT ppx -heparin until INR 1.8 -SCDs, early ambulation, coumadin PTOT -rec SNF, agree Dispo EP consult re: PPM 1.5L fluid restriction 40mg IV lasix now and at 1500 Schedule Miralax, Mucinex Stay in SDU given pacing requirements Subjective: Syncopal episode yesterday half-way down the ICU. [place] weak and legs gave out. HR did not increase. BP stable. Sodium 126. Objective: Vital Signs Temp Pulse Resp BP Pulse Ox 36.8 C 66 20 110/55 L 94 12/15/18 04:00 12/15/18 04:00 12/15/18 04:00 12/15/18 04:00 12/15/18 04:00 Laboratory Results 12/15/18 04:40 12/15/18 04:40 12/14/18 12/15/18 12/16/18 05:59 05:59 05:59 Intake Total 1440 420 Output Total 935 1200 Balance 505 -780 PT 13.8 SEC (12.0-15.0) 12/15/18 04:40 INR 1.10 (0.83-1.16) 12/15/18 04:40 General: NAD, sitting upright HEENT: CVL IJ, MMM Respiratory: nasal cannula oxygen 3L, no wheezes, crackles Cardiac: A paced 66, no m/r/g, trace edema GI: soft, nt, nd : rapp out Incisions: sternum - CDI ICD10 Worksheet Patient Problems: Problems Problem Status Onset Acute blood loss anemia Acute S/P ablation of atrial fibrillation Acute ~12/11/18 S/P left atrial appendage ligation Acute ~12/11/18 S/P mitral valve repair Acute ~12/11/18 S/P tricuspid valve repair Acute ~12/11/18 Asymmetric septal hypertrophy Chronic CAD (coronary artery disease) Chronic Chronic anticoagulation Chronic Longstanding persistent atrial fibrillation Chronic Mitral valve insufficiency Chronic KATHRYN (obstructive sleep apnea) Chronic Presence of stent in coronary artery Chronic Tricuspid valve insufficiency Chronic
[2018-12-15] MEDS ORDERED: FUROSEMIDE 40 MG/4 ML VIAL IVP ONE ×2 (07:35→15:00)
[2018-12-15] MEDS: SENNOSIDES/DOCUSATE SODIUM TAB PO SCH ×2 (09:51→21:15)
[2018-12-15] MEDS: PANTOPRAZOLE SODIUM 40 MG TAB PO SCH (09:51)
[2018-12-15] MEDS: OMEGA-3 FATTY ACIDS 1,000 MG CAP PO SCH ×2 (09:51→21:15)
[2018-12-15] MEDS: ASPIRIN 81 MG CHEWABLE TAB PO SCH (09:52)
[2018-12-15] MEDS: guaiFENesin 600 MG TAB.ER PO SCH ×2 (10:07→21:15)
--- NOTE | 2018-12-15 10:22 | PDINTPN ---
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 Still requiring supplemental oxygen -wean as tolerated * Nutrition * PT/OT-ambulating slowly with physical therapy Subjective: Sitting up in chair. Resting comfortably. No current complaints. Objective: Vital Signs Temp Pulse Resp BP Pulse Ox 36.6 C 66 16 101/57 L 94 12/15/18 08:00 12/15/18 08:00 12/15/18 08:00 12/15/18 08:00 12/15/18 08:00 Laboratory Results 12/15/18 04:40 12/15/18 04:40 12/14/18 12/15/18 12/16/18 05:59 05:59 05:59 Intake Total 1440 420 Output Total 935 1200 Balance 505 -780 PT 13.8 SEC (12.0-15.0) 12/15/18 04:40 INR 1.10 (0.83-1.16) 12/15/18 04:40 - Time Spent With Patient Time Spent With Patient: 35 min of time spent with patient, over 1/2 involved with coordination of care counseling. Case discussed with nursing Physical Exam - Physical Exam General Appearance: alert, no apparent distress EENT: PERRL/EOMI Neck: non-tender, supple Respiratory: crackles (Few basilar), No respiratory distress, No wheezing Cardiac/Chest: normal peripheral pulses, regular rate, rhythm Abdomen: normal bowel sounds, non-tender, soft Pelvic Exam: deferred Rectal: deferred Skin: normal color, warm/dry Extremities: non-tender Neuro/Psych: no motor/sensory deficits, alert, normal mood/affect, oriented x 3 ICD10 Worksheet Patient Problems: Problems Problem Status Onset Acute blood loss anemia Acute S/P ablation of atrial fibrillation Acute ~12/11/18 S/P left atrial appendage ligation Acute ~12/11/18 S/P mitral valve repair Acute ~12/11/18 S/P tricuspid valve repair Acute ~12/11/18 Asymmetric septal hypertrophy Chronic CAD (coronary artery disease) Chronic Chronic anticoagulation Chronic Longstanding persistent atrial fibrillation Chronic Mitral valve insufficiency Chronic KATHRYN (obstructive sleep apnea) Chronic Presence of stent in coronary artery Chronic Tricuspid valve insufficiency Chronic
[2018-12-15] MEDS: POLYETHYLENE GLYCOL 3350 17 GM PKT PO SCH (10:37)
[2018-12-15] MEDS ORDERED: POTASSIUM CL 20 MEQ TAB PO ONE (15:00)
[2018-12-15] MEDS: WHITE WINE 120 ML BOTTLE PO SCH (17:13)
[2018-12-15] MEDS: ACETAMINOPHEN 325 MG TAB PO PRN (21:15)
[2018-12-16 05:37] LABS: INR 1.11 (0.83-1.16); PROTIME(PATIENT) 13.9 SEC (12.0-15.0)
--- NOTE | 2018-12-16 08:16 | SOAPPROG ---
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 chronotropic incompetence Acute expected blood loss anemia -stable, 1 pRBC transfused Acute pulmonary insufficiency, improved -requiring 3L NC down from 5L -CXR congested 12/13, 12/15 Acute Kidney Injury, improved - resolved Hypervolemic hyponatremia -needs aggressive fluid restriction Stable CAD -noncritical, patent stent in LCx, no intervention necessary -secondary prevention with ASA/BB/statin when appropriate DVT ppx -heparin until INR 1.8 -SCDs, early ambulation, coumadin PTOT -rec SNF, agree Dispo 1L [place], nephro consult if Na worsens/becomes symptomatic PPM/TTE today Subjective: Improving. Objective: Vital Signs Temp Pulse Resp BP Pulse Ox 36.6 C 68 19 105/53 L 93 12/16/18 04:00 12/16/18 07:28 12/16/18 07:28 12/16/18 07:28 12/16/18 07:28 Laboratory Results 12/16/18 04:58 12/16/18 04:58 12/15/18 12/16/18 12/17/18 05:59 05:59 05:59 Intake Total 420 Output Total 1200 250 50 Balance -780 -250 -50 PT 13.9 SEC (12.0-15.0) 12/16/18 04:58 INR 1.11 (0.83-1.16) 12/16/18 04:58 General: NAD, sitting upright HEENT: CVL IJ, MMM Respiratory: nasal cannula oxygen 3L, no wheezes, crackles Cardiac: A paced 66, no m/r/g, trace edema GI: soft, nt, nd : rapp out Incisions: sternum - CDI ICD10 Worksheet Patient Problems: Problems Problem Status Onset Acute blood loss anemia Acute S/P ablation of atrial fibrillation Acute ~12/11/18 S/P left atrial appendage ligation Acute ~12/11/18 S/P mitral valve repair Acute ~12/11/18 S/P tricuspid valve repair Acute ~12/11/18 Asymmetric septal hypertrophy Chronic CAD (coronary artery disease) Chronic Chronic anticoagulation Chronic Longstanding persistent atrial fibrillation Chronic Mitral valve insufficiency Chronic KATHRYN (obstructive sleep apnea) Chronic Presence of stent in coronary artery Chronic Tricuspid valve insufficiency Chronic
--- NOTE | 2018-12-16 08:33 | PDGENHP ---
History & Physical Chief Complaint: Underlying junctional rhythm History of Present Illness: POD #5 s/p MVRepair #28 Physio II ring, primary closure of septal perforation, TVR #28 MC3 ring, CM4 with underlying junctional rhythm post-operatively Relevant Physical Exam: A&Ox4, no apparent distress, lungs CTA, regular rate and rhythm, S1, S2 Cardiorespiratory Assessment: Proceed with implant of a dual-chamber PPM as planned for today
[2018-12-16] MEDS ORDERED: BACITRACIN IRRIGATION/NS 50,000 UNITS/1,000 ML BTL IRR ONE (08:55)
[2018-12-16] MEDS ORDERED: NS 1,000 ML IV ONE (08:55)
[2018-12-16] MEDS ORDERED: ceFAZolin 2 GM/DEXTROSE 100 ML IV ONE (08:55)
[2018-12-16] MEDS ORDERED: fentaNYL 100 MCG/2 ML INJ IVP PRN ×2 (08:56→10:46)
[2018-12-16] MEDS ORDERED: PROMETHAZINE HCL 25 MG/ML INJ IVP PRN ×2 (08:56→10:46)
[2018-12-16] MEDS ORDERED: ONDANSETRON 4 MG/2 ML VIAL IVP PRN ×2 (08:56→10:46)
[2018-12-16] MEDS ORDERED: NALOXONE HCL 0.4 MG/ML INJ IVP PRN ×2 (08:56→10:46)
--- NOTE | 2018-12-16 08:56 | PDANEPAE ---
ANE Past Medical History - Cardiovascular History Hx Hypertension: Yes Hx Arrhythmias: Yes Hx Chest Pain: No Hx Coronary Artery / Peripheral Vascular Disease: Yes Hx CHF / Valvular Disease: Yes Hx Palpitations: No - Pulmonary History Hx COPD: No Hx Asthma/Reactive Airway Disease: No Hx Recent Upper Respiratory Infection: No Hx Oxygen in Use at Home: Yes O2 in Use at Home (L/minute): CPAP Hx Sleep Apnea: Yes Sleep Apnea Screening Result - Last Documented: Positive Pulmonary History Comment: KATHRYN uses oral device - Neurologic History Hx Cerebrovascular Accident: Yes Hx Seizures: No Hx Dementia: No Neurologic History Comment: 08/02 stroke - Endocrine History Hx Diabetes: No - Renal History Hx Renal Disorders: No - Liver History Hx Hepatic Disorders: No - Neurological & Psychiatric Hx Hx Neurological and Psychiatric Disorders: No - Cancer History Hx Cancer: No - Congenital Disorder History Hx Congenital Disorders: No - GI History Hx Gastrointestinal Disorders: No - Other Health History Other Health History: right leg has cut from shaving. bruises easily - Chronic Pain History Chronic Pain: Yes (lower back pain) - Surgical History Prior Surgeries: cataract L eye 05/12. cataract on r 05/04 ANE Review of Systems Review of Systems: - Exercise capacity METS (RN): 4 METS - Pacemaker Pacemaker Set Rate: 66 ANE Patient History - Allergies Allergies/Adverse Reactions: No Known Allergies Allergy (Verified 12/11/18 07:43) - Home Medications Home medications: home medication list seen and reviewed Home Medications: Aspirin [Aspirin 81mg (*)] 162 mg PO DAILY 12/04/18 [Last Taken 12/09/18 08:00] Carboxymethylcellulose 1% [Refresh Celluvisc (*)] 1 drop EACHEYE DAILY PRN 12/04 [Last Taken 12/10/18 08:00] Enoxaparin [Lovenox 60 MG (*)] 60 mg SQ BID 12/04/18 [Last Taken 12/09/18 20:00] Herbals/Supplements -Info Only 1 ea PO DAILY 12/04/18 [Last Taken 12/09/18 08:00 ] Simla-3 Fatty Acids [Fish Oil 1000 mg (*)] 1,000 mg PO BID 12/04/18 [Last Taken 12/09/18 22:00] Simvastatin [Zocor] 20 mg PO HS 12/04/18 [Last Taken 12/09/18 22:00] Spironolactone [Aldactone 25 MG (*)] 12.5 mg PO DAILY 12/04/18 [Last Taken 12/09 08:00] Verapamil ER [Calan SR/ER 120MG (*)] 120 mg PO BID 12/04/18 [Last Taken 08:00] Warfarin Sodium [Coumadin 5MG (*)] 5 mg PO SUWE@18 12/04/18 [Last Taken 18:00] Warfarin Sodium [Coumadin 7.5MG (*)] 7.5 mg PO MOTUTHFRSA@18 12/04/18 [Last Taken 12/03/18 18:00] - NPO status NPO Status: no food or drink >8 hours NPO Since - Liquids (Date): 12/11/18 NPO Since - Liquids (Time): 00:01 NPO Since - Solids (Date): 12/11/18 NPO Since - Solids (Time): 00:01 - Anes Hx Anes Hx: no prior problems - Smoking Hx Smoking Status: Never smoked - Alcohol Use Alcohol Use: None - Family Anes Hx Family Hx Anesthesia Complications: none ANE Labs/Vital Signs - Labs Result Diagrams: 12/16/18 04:58 12/16/18 04:58 - Vital Signs Blood Pressure: 105/53 Heart Rate: 68 Respiratory Rate: 19 O2 Sat (%): 93 Height: 162.56 cm Weight: 77.7 kg ANE Physical Exam - Airway Neck exam: FROM Mallampati Score: Class 3 Mouth exam: normal dental/mouth exam - Pulmonary Pulmonary: reduced air movement - Cardiovascular Cardiovascular: other (A. fib., being paced with surgically-placed wires.) - ASA Status ASA Status: IV ANE Anesthesia Plan Anesthesia Plan: MAC
[2018-12-16] MEDS ORDERED: fentaNYL 100 MCG/2 ML INJ ONE (09:00)
[2018-12-16] MEDS ORDERED: PROPOFOL 200 MG/20 ML VIAL ONE (09:00)
[2018-12-16] MEDS ORDERED: SENNOSIDES/DOCUSATE SODIUM TAB PO PRN (09:00)
[2018-12-16] MEDS ORDERED: BUPIVACAINE 0.75% 10 ML SDV ONE (09:21)
[2018-12-16] MEDS ORDERED: IOPAMIDOL (ISOVUE-300) 100 ML BTL ONE (09:21)
[2018-12-16] MEDS ORDERED: LIDOCAINE 1% 300 MG/30 ML SDV ONE (09:21)
--- NOTE | 2018-12-16 11:09 | POSTANESTH ---
Post Anesthetic Evaluation Cardiovascular Status: Similar to Pre-Op Cond Respiratory Status: Similar to Pre-op Cond. Level of Consciousness/Mental Status: Can Participate in Eval, Alert and Oriented Pain Control: Adequate, Prn Tx Ordered Nausea/Vomiting Control: Adequate, Prn Tx Ordered Complications Possibly Related to Anesthesia: None Noted
[2018-12-16] MEDS ORDERED: FUROSEMIDE 20 MG/2 ML VIAL IVP ONE (11:13)
--- NOTE | 2018-12-16 11:19 | EPPROC ---
Electrophysiology Procedure Note: PROCEDURE PERFORMED: 1. Implantation of an A/V Pacemaker 2. Subclavian vein angiography 3. Fluoroscopy INDICATION: Sinus arrest, post maze, POD 5 PROCEDURE NOTE: Patient presented to the cardiac catheterization laboratory in a fasting, post absorptive state. Dr. Christiano Joyner administered moderate sedation. The left infraclavicular area was prepped and draped in the usual sterile fashion. Lidocaine plus bupivacaine was used for local anesthesia. Left subclavian venography was performed by injection of iodinated contrast into the left antecubital vein. This was done to assure patency of the vein and also to assess for any anatomical aberrations. Using a combination of blunt and sharp dissection and electrocautery, the dissection was carried down to the prepectoral fascia. A pocket was made in this anatomical plane. All bleeding was controlled with electrocautery. The pocket was packed with gauze soaked in antibiotic solution. Fluoroscopy was utilized during the entire procedure for venous access and placement of the leads. Using a direct stick technique the left extrathoracic axillary vein was accessed with 2 sticks using the modified Seldinger technique. Placement of the guidewires into the venous system was confirmed by low-pressure blood return and also by visualizing the guidewires advancing into the inferior vena cava. A purse string suture was applied around the guidewires. Two #6 American sheaths were advanced under fluoroscopic guidance over the guidewire. An active fixation ventricular lead was advanced into the right ventricular apex and screwed in place. An active fixation atrial lead was advanced into the right atrial appendage and screwed in place. The peel away sheaths were removed. Pacing thresholds, sensing parameters and lead impedances were measured. There was no diaphragmatic stimulation at maximum output. The leads were sutured to the prepectoral fascia with 3 nonabsorbable sutures each. The pocket was again inspected for any bleeding. The leads were attached to the pacemaker securely. The pacemaker was inserted into the pocket and secured in place with a nonabsorbable suture. Fluoroscopy was performed in GILMAN and KAYLEN planes to verify right-sided placement of the leads. Also fluoroscopy of the pacemaker pocket was performed. The pacemaker pocket was closed in 3 layers with absorbable monocryl sutures and madhav. Appropriate dressing was applied. The patient left the cardiac catheterization laboratory in stable condition. Serial Numbers: 1. Device: SJM Assurity MRI [id number] 2. Atrial Lead: SJM Tendril 8TC 46 SN [id number] 3. Ventricular Lead: SJM Tendril 8TC 52 SN [id number] Stimulation Thresholds & Impedance Measurements: 1. Atrial Lead P 1.7 mV (paced epicardially) 328 ohm 0.7 V 0.5 ms 2. Ventricular Lead R 6.3 mV (paced epicardially) 553 ohm 0.7 V 0.5 ms Joseluis Pacing Parameters 1. Pacing mode: DDDR 2. Lower rate: 70 ppm 3. Upper tracking rate: 130 ppm 4. Upper sensor rate: 130 ppm 5. AV delay 250 ms + 200 ms VIP Patient Problems: Problems Problem Status Onset Asymmetric septal hypertrophy Chronic Acute blood loss anemia Acute Chronic anticoagulation Chronic S/P tricuspid valve repair Acute ~12/11/18 S/P mitral valve repair Acute ~12/11/18 S/P left atrial appendage ligation Acute ~12/11/18 S/P ablation of atrial fibrillation Acute ~12/11/18 KATHRYN (obstructive sleep apnea) Chronic Presence of stent in coronary artery Chronic CAD (coronary artery disease) Chronic Tricuspid valve insufficiency Chronic Mitral valve insufficiency Chronic Longstanding persistent atrial fibrillation Chronic
--- NOTE | 2018-12-16 13:15 | CPEKG ---
Test Reason : OPEN Blood Pressure : / mmHG Vent. Rate : 070 BPM Atrial Rate : 070 BPM P-R Int : 215 ms QRS Dur : 087 ms QT Int : 402 ms P-R-T Axes : 122 002 134 degrees QTc Int : 434 ms Atrial-paced rhythm Nonspecific repol abnormality, diffuse leads Confirmed by Florentin Nelson ([id number]) on 12/16/2018 1:14:45 PM Referred By: Sly Baxter Confirmed By:Florentin Nelson
[2018-12-16] MEDS: OMEGA-3 FATTY ACIDS 1,000 MG CAP PO SCH ×2 (13:21→19:46)
[2018-12-16] MEDS: guaiFENesin 600 MG TAB.ER PO SCH ×2 (13:22→19:46)
[2018-12-16] MEDS: PANTOPRAZOLE SODIUM 40 MG TAB PO SCH (13:22)
[2018-12-16] MEDS: POLYETHYLENE GLYCOL 3350 17 GM PKT PO SCH (13:22)
--- NOTE | 2018-12-16 14:14 | ECHO ---
[email or web address] [address] Main: [phone] Echocardiography Examination Transthoracic Name: FAITH ANDERSON MR#: [id number] Study Date: 12/16/2018 Study Time: 11:57 AM Date of : 1940 Age: 78 year(s) Height: 162.6 cm (64 in.) Weight: 69.85 kg (154 lb.) BSA: 1.75 m2 Gender: Female Examination: Echo Contrast: Image Quality: Rhythm: Heart Rate: BP: / Indication: Post MVR, TVA and pacemaker Procedure Staff Referring Physician: Mac Artist: Tyrese Weems RDCS Reading Physician: Denise Garcia MD Requesting Provider: Ordering Physician: Keith Wray Indication: Post MVR, TVA and pacemaker Measurements Chambers AV/MV Label Value Normal Value Label Value Normal Value LVOT Vmax 0.82 m/s (0.7m/s - 1.1m/s) AV PGmax 8 mmHg LVOTd 1.9 cm (1.8cm - 2cm) AV PGmean 5 mmHg LVOT VTI 18.2 cm (18cm - 22cm) AV Vmax 1.45 m/s LVDd, MM 5.7 cm (3.9cm - 5.3cm) MIMI (Vmax) 1.6 cm2 LVDd, 2D 4.2 cm (3.9cm - 5.3cm) MIMI (VTI) 1.7 cm2 LVDs, MM 4.6 cm (2cm - 3.8cm) MV E Vmax 1.49 m/s LVDs, 2D 3.6 cm (2.1cm - 4cm) MV VTI 41.4 cm IVSd, MM 1.2 cm (0.6cm - 0.9cm) MVA D (continuity eq.) 1.2 cm2 IVSd, 2D 0.9 cm (0.6cm - 1.1cm) MV PGmax 14 mmHg LVPWd, MM 0.9 cm (0.6cm - 0.9cm) MV PGmean 4 mmHg LVPWd, 2D 0.9 cm MV PHT 0.07 s LVEF, BP 45 % (55% - 70%) MVA PHT 3 cm2 LVEF, 2D 34 % (54% - 74%) MV Guerline 3.6 cm LVOT PGmean 1 mmHg MR Reg. Volume 31 ml LVOT Vmean 0.53 m/s MR Reg. Fraction 7 % RVDd, 2D 2.7 cm (1.9cm - 3.8cm) MR Vmax 4.76 m/s Additional Vessels MR VTI 154 cm Label Value Normal Value MR (ERO) 0.2 cm2 AoRoot, MM 3 cm (2.2cm - 3.7cm) MR PISA Radius 0.7 cm Patient: FAITH ANDERSON Study Date: 12/16/2018 Page 1 of 3 11:57 AM MR PISWoody Klein V. 30.8 cm/s MV PHT 73 ms TV/PV Label Value Normal Value [place] End currie Dane 1.51 cm/s PV PGmax 3 mmHg PV Vmax, Caliper 0.87 m/s (0.6m/s - 0.9m/s) Conclusions 1. The left ventricle is normal in size. Left ventricular ejection fraction is mildly reduced at approximately 45%. There is basilar to mid inferolateral and inferior as well as inferoseptal hypokinesis. There is mild apical hypokinesis. 2. The right ventricle is normal in size and systolic function. 3. The left atrium is [id number] dilated. 4. Mitral valve status post repair. Mild mitral regurgitation. 5. Tricuspid valve status post repair. No tricuspid regurgitation. 6. No pericardial effusion. Large pleural effusion. 7. Compared directly to 09/04/2018, LV function is now slightly decreased with regional wall motion abnormalities as noted above. Tricuspid and mitral valves have been repaired. Findings Left Ventricle: There is inferior to inferoseptal hypokinesis. There is basilar inferolateral to mid inferolateral hypokinesis. The apex of the LV is hypokinetic.. Left ventricle is normal in size. Mildly reduced systolic left ventricular function. The ejection fraction, measured by Simpsons method, is 45 %. Left ventricle wall thickness is normal. Right Ventricle: Normal size right ventricle. Right ventricular systolic function is normal. There is a pacing/ICD wire present in the right ventricle. Left Atrium: The left atrium is mildly to moderately dilated. Right Atrium: The right atrium is mildly dilated. Mitral Valve: Mild mitral regurgitation. An annuloplasty ring is noted in the mitral valve position. Aortic Valve: Aortic leaflets are structurally normal. No significant aortic valve regurgitation. There is no aortic stenosis. The aortic valve is trileaflet. Tricuspid Valve: No significant tricuspid regurgitation. There is a tricuspid valve ring. Pulmonic Valve: Pulmonic leaflets are structurally normal. Mild pulmonic valve regurgitation is present. Aorta: The aorta is normal. The aortic root size in M-mode measures 3.0 cm. Aorta Measurements AoRoot, MM is 3.0 cm. Pericardium: Compared to the previous exam of 09/04/18 there is now new wall motion abnormalities with a EF estimated at 45%. No pericardial effusion. There is a large left pleural effusion. Exam Details Procedure Ordered: Echo Patient: FAITH ANDERSON Study Date: 12/16/2018 Page 2 of 3 11:57 AM (No Signature Object) Patient: FAITH ANDERSON Study Date: 12/16/2018 Page 3 of 3 11:57 AM [id number]
[2018-12-16] MEDS ORDERED: BIOTENE DRY MOUTH ORAL RINSE 237 ML BTL MM PRN (17:12)
[2018-12-16] MEDS ORDERED: WARFARIN SODIUM 5 MG TAB PO ONE (17:15)
[2018-12-16] MEDS: WHITE WINE 120 ML BOTTLE PO SCH (17:16)
[2018-12-16] MEDS ORDERED: WHITE WINE 120 ML BOTTLE PO PRN (19:00)
[2018-12-16] MEDS: ACETAMINOPHEN 325 MG TAB PO PRN (20:13)
[2018-12-17 06:16] LABS: PLATELET COUNT 156 10^3/uL (150-400)
[2018-12-17 06:58] LABS: INR 1.14 (0.83-1.16); PROTIME(PATIENT) 14.1 SEC (12.0-15.0)
--- NOTE | 2018-12-17 08:15 | SOAPPROG ---
SOAP Progress Note Assessment/Plan: Assessment: POD#6 complex MVRepair w #28 Physio II ring, TVA #28 MC3 ring, Gilliam- Maze 4 POD#1 placement dual chamber SJM Assurity pacemaker, DDDR, lower rate 70 Severe mitral & tricuspid insufficiency - Amenable to repair. 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 Chest tubes and Vwires out. Antithrombotic prophylaxis as per Maze. Longstanding persistent atrial fibrillation/chronically anticoagulated w coumadin - Post Maze rhythm predominantly junctional and assoc with presyncope/ weakness. PPM placed yest. Antithrombotic prophylaxis with coumadin resumed. AF prophylaxis with BB as tolerated. Acute on chronic diastolic CHF - Class III preop. Postop exacerbation by significant volume overload, moderate sized bilateral pleural effusions, +/- tristan ischemia. Mild renal insufficiency resolved with supportive care. Use of diuretics limited by hypoNa. IR to eval for left thoracentesis. Cards to eval for LHC. Skilled for SNF by PT/OT. Hypervolemic hyponatremia - Seemingly worse with loop diuretics. Stable with aggressive fluid restriction. Consider nephrology consult if Na drops below 125. Acute expected blood loss anemia -Stable s/p 1u PRBC. VTE prophylaxis with SCDs and sq heparin until INR > 1.8. Hx CAD w preserved LV systolic fx - Preop cath notable for patent mid LCX stent with mild luminal irregs of LAD and 20-30% mid RCA stenosis. No apparent postop ischemia but baseline postop echo yest concerning for reduction in LV systolic to 45% with new RWMA of inferolateral wall. Cards to eval for LHC. Secondary prevention with ASA/BB/statin when appropriate. Plan: Cont 1L fluid restriction. Ultrasound left chest for suitability thoracentesis. Consider right thoracentesis pending volume removed. Remove Awires. Resume home coumadin regimen. Probable tristan angiogram later today. Dispo - [facility] when medically stable. 12/17/18 08:10 Subjective: c/o worsening dyspnea, orthopnea and breathlessness with min activity. No CP. Objective: Vital Signs Temp Pulse Resp BP Pulse Ox 36.7 C 70 19 105/51 L 95 12/17/18 07:21 12/17/18 07:21 12/17/18 07:29 12/17/18 07:21 12/17/18 07:29 Laboratory Results 12/17/18 06:00 12/17/18 06:00 12/16/18 12/17/18 12/18/18 05:59 05:59 05:59 Intake Total 670 Output Total 250 850 Balance -250 -180 PT 14.1 SEC (12.0-15.0) 12/17/18 06:00 INR 1.14 (0.83-1.16) 12/17/18 06:00 Paced. SBP remains relatively low. Suppl O2 req back up to 2 lpm. CXR -> small to moderate bilat pl effusions, L>R, with mild pulm vasc congestion. Balanced I/Os. +9 kg overall. No further drop in Na. K, Cr and INR remain nl. Physical Exam - Physical Exam General Appearance: alert, mild distress Respiratory: decreased breath sounds (bases) Cardiac/Chest: regular rate, rhythm, other (left chest pacer pocket soft and flat) Abdomen: non-tender, soft Skin: warm/dry Extremities: swelling (trace dependent edema) ICD10 Worksheet Patient Problems: Problems Problem Status Onset Acute blood loss anemia Acute S/P ablation of atrial fibrillation Acute ~12/11/18 S/P left atrial appendage ligation Acute ~12/11/18 S/P mitral valve repair Acute ~12/11/18 S/P tricuspid valve repair Acute ~12/11/18 Asymmetric septal hypertrophy Chronic CAD (coronary artery disease) Chronic Chronic anticoagulation Chronic Longstanding persistent atrial fibrillation Chronic Mitral valve insufficiency Chronic KATHRYN (obstructive sleep apnea) Chronic Presence of stent in coronary artery Chronic Tricuspid valve insufficiency Chronic
[2018-12-17] MEDS: OMEGA-3 FATTY ACIDS 1,000 MG CAP PO SCH ×2 (09:02→19:33)
[2018-12-17] MEDS: guaiFENesin 600 MG TAB.ER PO SCH ×2 (09:02→19:33)
[2018-12-17] MEDS: PANTOPRAZOLE SODIUM 40 MG TAB PO SCH (09:03)
[2018-12-17] MEDS: POLYETHYLENE GLYCOL 3350 17 GM PKT PO SCH (09:03)
[2018-12-17] MEDS ORDERED: LIDOCAINE 1% 300 MG/30 ML SDV ONE (10:04)
--- NOTE | 2018-12-17 11:21 | PDCARPN ---
Cardiology Progress Note Chief Complaint: s/p dual-chamber PPM Assessment/Plan: Assessment/Plan: 1. Post-op sinus note dysfunction with underlying junctional rhythm s/p implant of a [place] dual-chamber PPM with Dr. Bruner yesterday 12/16. Normal impedance and thresholds by device interrogation this morning. Plan to remove madhav in 1 week at [facility], device check with and follow-up visit with Ra in 4-6 weeks. No heavy lifting >5 lbs and keep left arm below the level of the shoulder x4 weeks. Wear sling at [facility] x4 weeks. 2. Post-op complex MVRepair, and Gilliam-Maze 4 3. Longstanding persistent atrial fibrillation s/p CM4: [id number] score = at least 4, Coumadin re-started last NOC 4. Coronary artery disease: New wall-motion abnormality noted on echo yesterday , possible LHC planned for this admission 5. Dyspnea: hypoxia with room air trials, pleural effusion noted on echo and CXR , thoracentesis planned for today EP will sign off for now, happy to consult for if any new or concerning issues arise 12/17/18 11:14 Subjective: Nita reports dyspnea overnight, worse when laying flat. No chest pain, chest pressure, or other concerning symptoms. Reviewed/Discussed With: multidisciplinary team Time Spent with Patient: greater than 25 minutes Time Spent with Patient: Greater than 25 minutes spent on this patients care, greater than 50% of time spent counseling, educating, and coordinating care regarding the above mentioned plan. Objective: Vital Signs (8 Hrs) Temp Pulse Resp BP Pulse Ox 12/17/18 07:29 19 95 12/17/18 07:21 36.7 C 70 21 H 105/51 L 89 L 12/17/18 03:48 36.7 C 70 16 92/58 L 96 Intake/Output (24 Hrs) 12/16/18 12/17/18 12/18/18 05:59 05:59 05:59 Intake Total 670 Output Total 250 850 Balance -250 -180 Intake: Oral (ml) 670 Output: Urine (ml) 250 850 Toilet 250 850 Other: Weight 77.3 kg Number of Voids Toilet 2 Number of Stools Toilet 1 Result Diagrams: 12/17/18 06:00 12/18/18 05:57 - Physical Exam Constitutional: WDWN, healthy appearing Ears, Nose, Mouth, Throat: moist mucous membranes, no oral ulcers, no thrush Respiratory: other (breathlessness) Neurologic: AAOx3, CN II-XII grossly intact Psychiatric: cooperative, interactive, following commands, not anxious ICD10 Worksheet Patient Problems: Problems Problem Status Onset Acute blood loss anemia Acute S/P ablation of atrial fibrillation Acute ~12/11/18 S/P left atrial appendage ligation Acute ~12/11/18 S/P mitral valve repair Acute ~12/11/18 S/P tricuspid valve repair Acute ~12/11/18 Asymmetric septal hypertrophy Chronic CAD (coronary artery disease) Chronic Chronic anticoagulation Chronic Longstanding persistent atrial fibrillation Chronic Mitral valve insufficiency Chronic KATHRYN (obstructive sleep apnea) Chronic Presence of stent in coronary artery Chronic Tricuspid valve insufficiency Chronic
[2018-12-17] MEDS: ASPIRIN 81 MG CHEWABLE TAB PO SCH (11:50)
[2018-12-17] MEDS ORDERED: WARFARIN SODIUM 7.5 MG TAB PO SCH (18:00)
[2018-12-18] MEDS: ACETAMINOPHEN 325 MG TAB PO PRN ×2 (02:02→20:48)
[2018-12-18 06:15] LABS: INR 1.14 (0.83-1.16); PROTIME(PATIENT) 14.1 SEC (12.0-15.0)
--- NOTE | 2018-12-18 07:20 | SOAPPROG ---
SOAP Progress Note Assessment/Plan: POD #7: complex MV repair w #28 Physio II ring, TVA #28 MC3 ring, Gilliam-Maze 4 POD #2: placement dual chamber SJM Assurity pacemaker, DDDR, lower rate 70 Severe mitral & tricuspid insufficiency - amenable to repair. 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 Chest tubes and Vwires out. Antithrombotic prophylaxis as per Maze. Longstanding persistent atrial fibrillation/chronically anticoagulated w coumadin - post Maze rhythm predominantly junctional and assoc with presyncope/ weakness. PPM placed. Antithrombotic prophylaxis with coumadin resumed. AF prophylaxis with BB as tolerated. Acute on chronic class III diastolic CHF - HF meds as tolerated. Hypervolemic hyponatremia - stable with aggressive fluid restriction. Consider nephrology consult if Na drops below 125. Acute post-op blood loss anemia - stable s/p 1u PRBC. VTE prophylaxis with SCDs and sq heparin until INR > 1.8. Hx CAD w preserved LV systolic fx - pre-op cath notable for patent mid LCX stent with mild luminal irregs of LAD and 20-30% mid RCA stenosis. No apparent postop ischemia but baseline postop echo yest concerning for reduction in LV systolic to 45% with new RWMA of inferolateral wall. Cards to eval for LHC. Secondary prevention with ASA/BB/statin when appropriate. DVT prohylaxis - SCDs/heaparin SQ Disposition - PCU - Plan for SNF once medically stable Subjective: Resting comfortable. Objective: Vital Signs Temp Pulse Resp BP Pulse Ox 36.6 C 70 20 114/60 96 12/18/18 03:29 12/18/18 03:29 12/18/18 03:29 12/18/18 03:29 12/18/18 03:29 Laboratory Results 12/17/18 06:00 12/18/18 05:57 12/17/18 12/18/18 12/19/18 05:59 05:59 05:59 Intake Total 670 600 Output Total 850 945 Balance -180 -345 PT 14.1 SEC (12.0-15.0) 12/18/18 05:57 INR 1.14 (0.83-1.16) 12/18/18 05:57 Physical Exam - Physical Exam General Appearance: WD/WN, alert, no apparent distress EENT: No scleral icterus (R), No scleral icterus (L) Neck: normal inspection Respiratory: No respiratory distress Cardiac/Chest: other (paced) Abdomen: non-tender, soft, No distended Skin: normal color, warm/dry Extremities: pedal edema Neuro/Psych: no motor/sensory deficits, alert, normal mood/affect, oriented x 3 ICD10 Worksheet Patient Problems: Problems Problem Status Onset Acute blood loss anemia Acute S/P ablation of atrial fibrillation Acute ~12/11/18 S/P left atrial appendage ligation Acute ~12/11/18 S/P mitral valve repair Acute ~12/11/18 S/P tricuspid valve repair Acute ~12/11/18 Asymmetric septal hypertrophy Chronic CAD (coronary artery disease) Chronic Chronic anticoagulation Chronic Longstanding persistent atrial fibrillation Chronic Mitral valve insufficiency Chronic KATHRYN (obstructive sleep apnea) Chronic Presence of stent in coronary artery Chronic Tricuspid valve insufficiency Chronic
[2018-12-18] MEDS ORDERED: FUROSEMIDE 40 MG/4 ML VIAL IVP ONE (09:30)
[2018-12-18] MEDS ORDERED: POTASSIUM CL 20 MEQ TAB PO ONE (09:30)
[2018-12-18] MEDS: PANTOPRAZOLE SODIUM 40 MG TAB PO SCH (10:02)
[2018-12-18] MEDS: OMEGA-3 FATTY ACIDS 1,000 MG CAP PO SCH ×2 (10:02→20:48)
[2018-12-18] MEDS: ASPIRIN 81 MG CHEWABLE TAB PO SCH (10:03)
[2018-12-18] MEDS: guaiFENesin 600 MG TAB.ER PO SCH ×2 (10:03→20:48)
--- NOTE | 2018-12-18 11:53 | ASMTCMCOM ---
CM Note CM Note Notes: 12/18/2018 Case Management Note Faxed updates to [facility] via [employer]. [facility] accepted pt. [facility] declined pt. Case Management d/c poc: [facility] SNF rehab when medically ready. Case Management to follow. Date Signed: 12/18/2018 11:52 AM Electronically Signed By:Carmen Olmos RN
[2018-12-18] MEDS ORDERED: AMIODARONE HCL 200 ML IV ONE (12:25)
[2018-12-18] MEDS ORDERED: AMIODARONE HCL 100 ML IV PRN (12:25)
[2018-12-18] MEDS ORDERED: LIDOCAINE 1% 300 MG/30 ML SDV ONE (16:13)
--- NOTE | 2018-12-18 17:34 | PDCARPN ---
Cardiology Progress Note Assessment/Plan: Assessment:1. Patient post operative valve complicated by shortness of breath and large bilateral pleural effusion. The patient is less symptomatic post left thoracentesis and is going down for right thoracentesis today. We were reconsulted for a new posterior wall motion abnormality and EKG suggestive of an injury pattern involving the posterior wall. I will consider angiography if she is symptomatic post thoracentesis. I am not sure that an intervention with anticoagulation would be a good idea this soon post op and might be reasonable to reserve intervention and angiography if she remains symptomatic. Will reevaluate tomorrow. Plan: As above. 12/18/18 17:30 Objective: Vital Signs (8 Hrs) Temp Pulse Resp BP Pulse Ox 12/18/18 16:00 36.5 C 88 16 100/48 L 96 12/18/18 12:00 36.4 C 98 20 96/54 L 94 Intake/Output (24 Hrs) 12/17/18 12/18/18 12/19/18 05:59 05:59 05:59 Intake Total 670 600 Output Total 850 945 Balance -180 -345 Intake: Oral (ml) 670 600 Output: Urine (ml) 850 945 Toilet 850 945 Other: Weight 77.3 kg 77 kg Intake Quantity Yes Sufficient Number of Voids Toilet 2 1 Number of Stools Toilet 1 1 Result Diagrams: 12/17/18 06:00 12/18/18 05:57 - Physical Exam Eyes: PERRL Ears, Nose, Mouth, Throat: moist mucous membranes Cardiovascular: regular rate and rhythm, systolic murmur Respiratory: no crackles, reduced air movement, dullness to percussion Gastrointestinal: normoactive bowel sounds, no tenderness Skin: no rashes Neurologic: AAOx3, CN II-XII grossly intact Psychiatric: cooperative - . Pending Discharge Within 24 Hours: No Pending Discharge Within 48 Hours: No ICD10 Worksheet Patient Problems: Problems Problem Status Onset Asymmetric septal hypertrophy Chronic Acute blood loss anemia Acute Chronic anticoagulation Chronic S/P tricuspid valve repair Acute ~12/11/18 S/P mitral valve repair Acute ~12/11/18 S/P left atrial appendage ligation Acute ~12/11/18 S/P ablation of atrial fibrillation Acute ~12/11/18 KATHRYN (obstructive sleep apnea) Chronic Presence of stent in coronary artery Chronic CAD (coronary artery disease) Chronic Tricuspid valve insufficiency Chronic Mitral valve insufficiency Chronic Longstanding persistent atrial fibrillation Chronic
[2018-12-18] MEDS ORDERED: WARFARIN SODIUM 5 MG TAB PO SCH (18:00)
[2018-12-18] MEDS ORDERED: AMIODARONE HCL 540 MG in D5W 300 ML IV ONE (19:00)
[2018-12-18] MEDS: HEPARIN 5,000 UNIT/0.5 ML INJ SC SCH (20:58)
[2018-12-19 04:47] LABS: INR 1.24 (0.83-1.16); PROTIME(PATIENT) 15.1 SEC (12.0-15.0)
[2018-12-19] MEDS: HEPARIN 5,000 UNIT/0.5 ML INJ SC SCH ×2 (06:25→15:27)
--- NOTE | 2018-12-19 08:07 | SOAPPROG ---
SOAP Progress Note Assessment/Plan: Assessment: POD#8 complex MVRepair w #28 Physio II ring, TVA #28 MC3 ring, Gilliam- Maze 4 POD#3 placement dual chamber SJM Assurity pacemaker, DDDR, lower rate 70 PPD#2 left thoracentesis, 550 ml PPD#1 right thoracentesis, 400 ml Severe mitral & tricuspid insufficiency - Amenable to repair. 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 Chest tubes and TCPWs out. Antithrombotic prophylaxis as per Maze. 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 Antithrombotic prophylaxis with coumadin resumed. Back in AF w CVR yest and started on amio as per protocol. Remains in AF this am. Adjunctive BB as allowed by BP. Acute on chronic diastolic CHF - Class III preop. Postop exacerbation by significant volume overload, moderate sized bilateral pleural effusions, +/- tristan ischemia. Mild renal insufficiency resolved with supportive care. Use of diuretics slowed by hypoNa. Skilled for SNF by PT/OT. Hypervolemic hyponatremia - Responding to aggressive fluid restriction and IV Lasix. Follow. Acute expected blood loss anemia -Stable s/p 1u PRBC. VTE prophylaxis with SCDs and sq heparin until INR > 1.8. Hx CAD w preserved LV systolic fx - Preop cath notable for left dominant circulation w patent mid LCX stent, mild luminal irregs of LAD, and 20-30% mid RCA stenosis. No apparent postop ischemia but baseline post-valve repair echo concerning for reduction in LV systolic to 45% with new RWMA of inferolateral wall. ? LCX injury/stent thrombosis w Maze mitral isthmus line. Cards to do LHC. Secondary prevention with baby ASA. Use of BB as allowed by BP. Home (non- formulary) statin when discharged. Plan: NPO for LHC as per cards. Cont 1L fluid restriction. Cont IV diuresis. Transition to oral amio tonight. Start metoprolol tonight if sufficient BP. Cont home coumadin regimen. Dispo - [facility] when medically stable. 12/19/18 08:05 Subjective: Disappointed that "all the fluid" not removed on the rt side yest, despite "3 sticks." Aware in AF. No malaise or lightheadedness. Objective: Vital Signs Temp Pulse Resp BP Pulse Ox 36.6 C 81 10 L 98/59 L 98 12/19/18 06:54 12/19/18 06:54 12/19/18 06:54 12/19/18 06:54 12/19/18 06:54 Laboratory Results 12/19/18 03:16 12/19/18 03:16 12/18/18 12/19/18 12/20/18 05:59 05:59 05:59 Intake Total 600 615.4 Output Total 945 1025 300 Balance -345 -409.6 -300 PT 15.1 SEC (12.0-15.0) H 12/19/18 03:16 INR 1.24 (0.83-1.16) H 12/19/18 03:16 PAF as of late afternoon yest. No RVR. SBPs 90s. Borderline suppl O2 req. Improving diuresis and Na level. CXR-> small residual effusions bilat, R>L INR beginning to rise. Physical Exam - Physical Exam General Appearance: alert, no apparent distress Respiratory: decreased breath sounds (bilat bases) Cardiac/Chest: irregularly irregular, other (Sternotomy and CT sites CDI. Left pacer dressing CDI.) Abdomen: non-tender, soft Skin: warm/dry Extremities: swelling (1+ dependent edema) ICD10 Worksheet Patient Problems: Problems Problem Status Onset Acute blood loss anemia Acute S/P ablation of atrial fibrillation Acute ~12/11/18 S/P left atrial appendage ligation Acute ~12/11/18 S/P mitral valve repair Acute ~12/11/18 S/P tricuspid valve repair Acute ~12/11/18 Asymmetric septal hypertrophy Chronic CAD (coronary artery disease) Chronic Chronic anticoagulation Chronic Longstanding persistent atrial fibrillation Chronic Mitral valve insufficiency Chronic KATHRYN (obstructive sleep apnea) Chronic Presence of stent in coronary artery Chronic Tricuspid valve insufficiency Chronic
[2018-12-19] MEDS: ASPIRIN 81 MG CHEWABLE TAB PO SCH (08:10)
[2018-12-19] MEDS: guaiFENesin 600 MG TAB.ER PO SCH ×2 (08:10→21:39)
[2018-12-19] MEDS: PANTOPRAZOLE SODIUM 40 MG TAB PO SCH (08:10)
[2018-12-19] MEDS: ACETAMINOPHEN 325 MG TAB PO PRN ×2 (08:10→21:44)
[2018-12-19] MEDS: OMEGA-3 FATTY ACIDS 1,000 MG CAP PO SCH ×2 (08:10→21:39)
[2018-12-19] MEDS ORDERED: FUROSEMIDE 40 MG/4 ML VIAL IVP ONE (09:00)
[2018-12-19] MEDS ORDERED: POTASSIUM CL 20 MEQ TAB PO ONE (09:00)
--- NOTE | 2018-12-19 10:19 | CPEKG ---
Test Reason : OPEN Blood Pressure : / mmHG Vent. Rate : 071 BPM Atrial Rate : 070 BPM P-R Int : 231 ms QRS Dur : 083 ms QT Int : 392 ms P-R-T Axes : -32 008 144 degrees QTc Int : 426 ms Atrial-paced complexes Prolonged MA interval Repol abnrm suggests ischemia, diffuse leads ST depression V1-V3 Confirmed by Florentin Nelson ([id number]) on 12/19/2018 10:19:31 AM Referred By: Sly Baxter Confirmed By:Florentin Nelson
[2018-12-19] MEDS ORDERED: DIAZEPAM 5 MG TAB PO ONE ×2 (10:54→13:30)
[2018-12-19] MEDS ORDERED: FAMOTIDINE 20 MG TAB PO ONE (10:54)
[2018-12-19] MEDS ORDERED: ASPIRIN EC 325 MG TAB PO ONE (10:54)
[2018-12-19] MEDS ORDERED: diphenhydrAMINE 25 MG CAP PO ONE ×2 (10:54→13:30)
--- NOTE | 2018-12-19 10:58 | PDPROPOC ---
Sedation Plan of Care Sedation Plan of Care: vital signs stable, mental status noted, patient educated of risks, benefits, alternatives, patient can tolerate sedation ASA Classification: ASA 3 Planned drugs: fentanyl, midazolam Mallampati Score: Class 2 Mallampati Reference Image: Patient passed 3-3-2 rule?: Yes
--- NOTE | 2018-12-19 10:59 | PDHPUP ---
History & Physical Update H&P update statement: This history and physical update is based on an assessment of the patient which was completed after admission or registration (within 24 hours), but prior to the surgery/procedure. H&P update: H&P reviewed & patient examined (patient with continued PVCs atrial fibrillation shortness of breath), changes noted
[2018-12-19] MEDS ORDERED: NS 1,000 ML IV SCH (11:00)
[2018-12-19 11:35] LABS: PLATELET COUNT 233 10^3/uL (150-400)
[2018-12-19 12:26] LABS: INR 1.27 (0.83-1.16); PROTIME(PATIENT) 15.4 SEC (12.0-15.0)
[2018-12-19] MEDS ORDERED: HEPARIN 10,000 UNIT/10 ML MDV (1,000 UNIT/ML) ONE (13:40)
[2018-12-19] MEDS ORDERED: IOPAMIDOL (ISOVUE-370) 150 ML BTL IV ONE (13:40)
[2018-12-19] MEDS ORDERED: MIDAZOLAM 2 MG/2 ML VIAL ONE (13:40)
[2018-12-19] MEDS ORDERED: fentaNYL 100 MCG/2 ML INJ ONE (13:40)
[2018-12-19] MEDS ORDERED: LIDOCAINE 1% 300 MG/30 ML SDV ONE (13:40)
[2018-12-19] MEDS ORDERED: VERAPAMIL 5 MG/2 ML VIAL ONE (13:40)
--- NOTE | 2018-12-19 14:41 | PDDXCAT ---
Diagnostic Cath Note - . Date: 12/19/18 [employer] Manager: Xavier Indication: CCC Class III and IV angina on medical treatment, other (abnormal ECG, atrial fibrillation, NSVT) - Procedure Access: left wrist Procedure: left heart catheterization, coronary angiography, left ventriculogram - Materials Left Heart Cath size: 5F Left Heart Cath materials: JL3.5, JR4.0, pigtail - Findings-Left Heart Catheterization LM: The left main is 5mm in size and trifurcates into an LAD, circumflex and ramus system. LAD: The left anterior descending is 2.5mm in size and gives rise to two important diagonal branches. There is ISAIAH III flow. There is a 30% lesion in the ostium of the LAD takeoff. LCX: The left circumflex is totally occluded proximal to the previously implanted stent. There is a filling defect consistent with thrombus. Please see assessment. ISAIAH O flow. RCA: The right coronary artery is 3mm in size and dominant. There is a 40% ostial lesion and 50% stenosis at the RV branch takeoff. There is ISAIAH III flow to the distal vessel. Ramus: The ramus is a small vessel and 1.5mm in size. There is no flow limiting obstruction. LVEF: 45% Wall motion: On LV gram there is mildly decreased ejection fraction measuring 45 %. There is severe hypokinesis of the posterior wall. There is no evidence of yon dissection or aneurysm formation of the thoracic aorta. - Findings-Right Heart Catheterization AO: Complications: NONE Estimated blood loss: <50ml Closure method: TR Band Assessment: The patient has a dominant right coronary system without evidence of flow limting obstruction. There is a 40% ostial lesion and 50% stenosis at the RV branch takeoff. The patient's left circumflex is totally occluded proximal to the previously implanted stent. The occlusion was probed with a short Intuition wire, and I was unable to cross the total occlusion with the wire. I abandoned the procedure, because the forces involved to cross the lesion were too great and I felt to proceed would be dangerous. Plan: The patient will have a CT Chest without contrast for further evaluation of the patient's right sided pleural effusion. Intervention: NONE Patient Problems: Problems Problem Status Onset Acute blood loss anemia Acute S/P ablation of atrial fibrillation Acute ~12/11/18 S/P left atrial appendage ligation Acute ~12/11/18 S/P mitral valve repair Acute ~12/11/18 S/P tricuspid valve repair Acute ~12/11/18 Asymmetric septal hypertrophy Chronic CAD (coronary artery disease) Chronic Chronic anticoagulation Chronic Longstanding persistent atrial fibrillation Chronic Mitral valve insufficiency Chronic KATHRYN (obstructive sleep apnea) Chronic Presence of stent in coronary artery Chronic Tricuspid valve insufficiency Chronic
[2018-12-19] MEDS ORDERED: ATROPINE SULFATE 1 MG/10 ML SYR IVP PRN (15:54)
[2018-12-19] MEDS: AMIODARONE HCL 200 MG TAB PO SCH (21:39)
[2018-12-19] MEDS: METOPROLOL TARTRATE 25 MG TAB PO SCH ×2 (21:39→21:45)
[2018-12-20] MEDS: HEPARIN 5,000 UNIT/0.5 ML INJ SC SCH ×4 (02:50→21:01)
[2018-12-20 04:52] LABS: INR 1.25 (0.83-1.16); PROTIME(PATIENT) 15.2 SEC (12.0-15.0)
--- NOTE | 2018-12-20 08:19 | SOAPPROG ---
SOAP Progress Note Assessment/Plan: Assessment: POD#9 complex MVRepair w #28 Physio II ring, TVA #28 MC3 ring, Gilliam- Maze 4 POD#4 placement dual chamber SJM Assurity pacemaker, DDDR, lower rate 70 PPD#3 left thoracentesis, 550 ml PPD#2 right thoracentesis, 400 ml PPD#1 left heart cath Severe mitral & tricuspid insufficiency - Amenable to repair. 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 Chest tubes and TCPWs out. Antithrombotic prophylaxis as per Maze. 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 Antithrombotic prophylaxis with coumadin resumed after PPM. Back in PAF w CVR as of POD#7 and started on amio as per protocol. Adjunctive BB as allowed by BP. Acute systolic & diastolic on chronic diastolic CHF - Class III preop. Postop exacerbation by significant volume overload, moderate sized bilateral pleural effusions, and tristan ischemia/LVSD. Mild renal insufficiency resolved with supportive care. Precautionary CT chest neg for significant residual pleural effusions. Skilled for SNF by PT/OT. Hypervolemic hyponatremia - Responding to aggressive fluid restriction and IV Lasix. Follow. Acute expected blood loss anemia -Stable s/p 1u PRBC. VTE prophylaxis with SCDs and sq heparin until INR > 1.8. Hx CAD w preserved LV systolic fx - Preop cath notable for left dominant circulation w patent mid LCX stent, mild luminal irregs of LAD, and 20-30% mid RCA stenosis. No apparent postop ischemia but baseline post-valve repair echo concerning for reduction in LV systolic to 45% with new RWMA of inferolateral wall. LCX thrombosis verified by [facility] yest. No intervention feasible. Supportive care/standard secondary prevention planned. Home (non-formulary) statin to resume upon discharge. Plan: Cont 1L fluid restriction. Cont IV lasix 40 mg daily. Cont amio 200 mg HS. Cont metoprolol tartrate 12.5 mg with conservative hold parameters. Cont home coumadin regimen. Dispo - [facility] [place] when Na > 130 and closer to euvolemia. 12/20/18 08:15 Subjective: Doing ok. Happy that swelling improving. Tired of interventions and glad nothing else planned. Objective: Vital Signs Temp Pulse Resp BP Pulse Ox 36.4 C 80 12 99/54 L 96 12/20/18 07:22 12/20/18 07:22 12/20/18 07:22 12/20/18 07:22 12/20/18 07:22 Laboratory Results 12/19/18 11:30 12/20/18 03:18 12/19/18 12/20/18 12/21/18 05:59 05:59 05:59 Intake Total 615.4 700 Output Total 1025 1100 200 Balance -409.6 -400 -200 PT 15.2 SEC (12.0-15.0) H 12/20/18 03:18 INR 1.25 (0.83-1.16) H 12/20/18 03:18 PAF w CVR Insufficient BP to inc BB Borderline suppl O2 req Adequate fluid balance Na and renal fx stable INR slow to rise Physical Exam - Physical Exam General Appearance: alert, no apparent distress Respiratory: lungs clear (anteriorly), other (CT sites clean and dry) Cardiac/Chest: irregularly irregular, other (Sternum grossly stable. Sternotomy CDI. Pacer dressing intact, pocket soft/flat) Abdomen: non-tender, soft Skin: warm/dry Extremities: swelling (trace dependent) ICD10 Worksheet Patient Problems: Problems Problem Status Onset Acute blood loss anemia Acute S/P ablation of atrial fibrillation Acute ~12/11/18 S/P left atrial appendage ligation Acute ~12/11/18 S/P mitral valve repair Acute ~12/11/18 S/P tricuspid valve repair Acute ~12/11/18 Asymmetric septal hypertrophy Chronic CAD (coronary artery disease) Chronic Chronic anticoagulation Chronic Longstanding persistent atrial fibrillation Chronic Mitral valve insufficiency Chronic KATHRYN (obstructive sleep apnea) Chronic Presence of stent in coronary artery Chronic Tricuspid valve insufficiency Chronic
[2018-12-20] MEDS ORDERED: FUROSEMIDE 40 MG/4 ML VIAL IVP ONE (09:00)
[2018-12-20] MEDS ORDERED: POTASSIUM CL 20 MEQ TAB PO ONE (09:00)
[2018-12-20] MEDS: OMEGA-3 FATTY ACIDS 1,000 MG CAP PO SCH ×2 (09:29→21:00)
[2018-12-20] MEDS: guaiFENesin 600 MG TAB.ER PO SCH (09:30)
[2018-12-20] MEDS: METOPROLOL TARTRATE 25 MG TAB PO SCH ×3 (09:30→21:00)
[2018-12-20] MEDS: PANTOPRAZOLE SODIUM 40 MG TAB PO SCH (09:30)
[2018-12-20] MEDS: ASPIRIN 81 MG CHEWABLE TAB PO SCH (09:31)
--- NOTE | 2018-12-20 13:16 | CPEKG ---
Test Reason : OPEN Blood Pressure : / mmHG Vent. Rate : 095 BPM Atrial Rate : 000 BPM P-R Int : 168 ms QRS Dur : 089 ms QT Int : 349 ms P-R-T Axes : 000 -02 153 degrees QTc Int : 439 ms A-V dual-paced complexes w/ some inhibition Confirmed by Florentin Nelson ([id number]) on 12/20/2018 1:16:31 PM Referred By: Sly Baxter Confirmed By:Florentin Nelson
--- NOTE | 2018-12-20 14:09 | ASMTCMCOM ---
CM Note CM Note Notes: CM faxed updates to the [facility]. CM spoke to Paula from [facility] about potential discharge date. Plan: The [facility] SNF rehab when medically ready CM to follow Date Signed: 12/20/2018 02:08 PM Electronically Signed By:Nitza Puentes
[2018-12-20] MEDS: WARFARIN SODIUM 7.5 MG TAB PO SCH (16:07)
--- NOTE | 2018-12-20 18:02 | PDCARPN ---
Cardiology Progress Note Assessment/Plan: Assessment:1. Patient post operative valve complicated by shortness of breath and large bilateral pleural effusion. The patient is less symptomatic post left thoracentesis and is going down for right thoracentesis today. We were reconsulted for a new posterior wall motion abnormality and EKG suggestive of an injury pattern involving the posterior wall. I will consider angiography if she is symptomatic post thoracentesis. I am not sure that an intervention with anticoagulation would be a good idea this soon post op and might be reasonable to reserve intervention and angiography if she remains symptomatic. Will reevaluate tomorrow. I had a long discussion with the patient and her son about the findings of cath yesterday. The patient has had a posterior myocardial infarction that was related to subacute stent thrombosis, an interplay between the rigid stent and the annuloplasty ring, or the coagulopathic changes that occur around the time of surgery. At this point the damage has been done and further attempts at reopening the vessel would be ill advised. The main goal at this time is to get her anticoagulated as she is in atrial fibrillation and has been for the past several days. We will sign off for now please reconsult if necessary. Plan: As above. 12/20/18 17:57 Reviewed/Discussed With: family, multidisciplinary team Time Spent with Patient: greater than 25 minutes Time Spent with Patient: Greater than 25 minutes spent on this patients care, greater than 50% of time spent counseling, educating, and coordinating care regarding the above mentioned plan. Objective: Vital Signs (8 Hrs) Temp Pulse Resp BP Pulse Ox 12/20/18 17:43 87 L 12/20/18 15:48 36.7 C 89 17 102/63 94 12/20/18 12:03 135 H 97 12/20/18 10:51 36.4 C 95 12 109/58 L 97 Intake/Output (24 Hrs) 12/19/18 12/20/18 12/21/18 05:59 05:59 05:59 Intake Total 615.4 700 Output Total 1025 1100 1175 Balance -409.6 -400 -1175 Intake: Oral (ml) 415 500 IV Intake (ml) 200 IV Infused (ml) 200.4 Amiodarone HCl 200 ml @ 200.4 33.333 mls/hr IV ONCE ONE Rx#:[id number] Output: Urine (ml) 1025 1100 1175 Toilet 1025 1100 1175 Other: Weight 76.6 kg 77.201 kg Number of Voids Toilet 1 3 1 Number of Stools Toilet 1 1 1 Result Diagrams: 12/19/18 11:30 12/20/18 03:18 - Physical Exam Constitutional: obese, other (pale) Ears, Nose, Mouth, Throat: moist mucous membranes Cardiovascular: no gallops, systolic murmur, irregularly irregular Respiratory: reduced air movement Gastrointestinal: normoactive bowel sounds, no tenderness Neurologic: AAOx3, CN II-XII grossly intact Psychiatric: cooperative, interactive ICD10 Worksheet Patient Problems: Problems Problem Status Onset Asymmetric septal hypertrophy Chronic Acute blood loss anemia Acute Chronic anticoagulation Chronic S/P tricuspid valve repair Acute ~12/11/18 S/P mitral valve repair Acute ~12/11/18 S/P left atrial appendage ligation Acute ~12/11/18 S/P ablation of atrial fibrillation Acute ~12/11/18 KATHRYN (obstructive sleep apnea) Chronic Presence of stent in coronary artery Chronic CAD (coronary artery disease) Chronic Tricuspid valve insufficiency Chronic Mitral valve insufficiency Chronic Longstanding persistent atrial fibrillation Chronic
[2018-12-20] MEDS: AMIODARONE HCL 200 MG TAB PO SCH (21:00)
[2018-12-21 04:23] LABS: INR 1.18 (0.83-1.16); PROTIME(PATIENT) 14.5 SEC (12.0-15.0)
[2018-12-21] MEDS: HEPARIN 5,000 UNIT/0.5 ML INJ SC SCH ×3 (05:08→21:20)
[2018-12-21] MEDS: METOPROLOL TARTRATE 25 MG TAB PO SCH ×2 (09:23→21:19)
[2018-12-21] MEDS: ASPIRIN 81 MG CHEWABLE TAB PO SCH (09:24)
[2018-12-21] MEDS: ACETAMINOPHEN 325 MG TAB PO PRN ×3 (09:24→23:09)
[2018-12-21] MEDS: OMEGA-3 FATTY ACIDS 1,000 MG CAP PO SCH ×2 (09:24→21:19)
[2018-12-21] MEDS ORDERED: FUROSEMIDE 40 MG/4 ML VIAL IVP ONE (10:33)
[2018-12-21] MEDS ORDERED: POTASSIUM CL 20 MEQ TAB PO ONE (10:34)
--- NOTE | 2018-12-21 12:55 | SOAPPROG ---
SOAP Progress Note Assessment/Plan: Assessment: POD#10 complex MVRepair w #28 Physio II ring, TVA #28 MC3 ring, Gilliam -Maze 4 POD#5 placement dual chamber SJM Assurity pacemaker, DDDR, lower rate 70 PPD#4 left thoracentesis, 550 ml PPD#3 right thoracentesis, 400 ml PPD#2 left heart cath Severe mitral & tricuspid insufficiency - Amenable to repair. 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 Chest tubes and TCPWs out. Antithrombotic prophylaxis as per Maze. 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 Antithrombotic prophylaxis with coumadin resumed after PPM. Back in PAF w CVR as of POD#7, on po amio and metoprolol. Acute systolic & diastolic on chronic diastolic CHF - Class III preop. Postop exacerbation by significant volume overload, moderate sized bilateral pleural effusions, and tristan ischemia/LVSD. Mild renal insufficiency resolved with supportive care. Precautionary CT chest neg for significant residual pleural effusions. SNF recommended by PT/OT. Hypervolemic hyponatremia - Responding to aggressive fluid restriction and IV Lasix. Will continue to follow. Acute expected blood loss anemia -Stable s/p 1u PRBC. VTE prophylaxis with SCDs and sq heparin until INR > 1.8. Hx CAD w preserved LV systolic fx - Preop cath notable for left dominant circulation w patent mid LCX stent, mild luminal irregs of LAD, and 20-30% mid RCA stenosis. No apparent postop ischemia but baseline post-valve repair echo concerning for reduction in LV systolic to 45% with new RWMA of inferolateral wall. LCX thrombosis verified by [facility] yest. No intervention feasible. Supportive care/standard secondary prevention planned. Home (non-formulary) statin to resume upon discharge. Plan: Cont home coumadin regimen. Continue to fluid restrict. Lasix 40mg IV. Start Iron and check am labs. Dispo - [facility] [place] when Na > 130 and closer to euvolemia. Subjective: Patient reports feeling weak today and had problems with ambulation early this am. However this has resolved. Patient denies pain. Objective: Vital Signs Temp Pulse Resp BP Pulse Ox 36.6 C 64 18 94/45 L 95 12/21/18 12:00 12/21/18 12:00 12/21/18 12:00 12/21/18 12:00 12/21/18 12:00 Laboratory Results 12/21/18 03:04 12/21/18 03:04 12/20/18 12/21/18 12/22/18 05:59 05:59 05:59 Intake Total 700 200 Output Total 1100 1575 Balance -400 -1375 PT 14.5 SEC (12.0-15.0) 12/21/18 03:04 INR 1.18 (0.83-1.16) H 12/21/18 03:04 Physical Exam - Physical Exam General Appearance: WD/WN, alert, no apparent distress Neck: supple Respiratory: lungs clear, normal breath sounds, other (no wheezing, rhonchi.) Cardiac/Chest: irregularly irregular (no mumurs, rubs. sternum stable. sternotomy c/d/i. ) Abdomen: normal bowel sounds, non-tender, soft Skin: normal color, warm/dry Extremities: other (Warm, 1-2+ lower extremity pitting edema. ) Neuro/Psych: alert, normal mood/affect, oriented x 3 ICD10 Worksheet Patient Problems: Problems Problem Status Onset Acute blood loss anemia Acute S/P ablation of atrial fibrillation Acute ~12/11/18 S/P left atrial appendage ligation Acute ~12/11/18 S/P mitral valve repair Acute ~12/11/18 S/P tricuspid valve repair Acute ~12/11/18 Asymmetric septal hypertrophy Chronic CAD (coronary artery disease) Chronic Chronic anticoagulation Chronic Longstanding persistent atrial fibrillation Chronic Mitral valve insufficiency Chronic KATHRYN (obstructive sleep apnea) Chronic Presence of stent in coronary artery Chronic Tricuspid valve insufficiency Chronic
[2018-12-21] MEDS: WARFARIN SODIUM 7.5 MG TAB PO SCH (15:12)
[2018-12-21] MEDS: AMIODARONE HCL 200 MG TAB PO SCH (21:19)
[2018-12-21] MEDS: FERROUS SULFATE 325 MG TAB PO SCH (21:19)
[2018-12-22 04:23] LABS: INR 1.17 (0.83-1.16); PROTIME(PATIENT) 14.4 SEC (12.0-15.0)
[2018-12-22] MEDS: HEPARIN 5,000 UNIT/0.5 ML INJ SC SCH ×3 (05:49→20:21)
[2018-12-22] MEDS: ACETAMINOPHEN 325 MG TAB PO PRN (05:49)
--- NOTE | 2018-12-22 08:03 | SOAPPROG ---
SOAP Progress Note Assessment/Plan: Assessment: POD#11 complex MVRepair w #28 Physio II ring, TVA #28 MC3 ring, Gilliam -Maze 4 POD#6 placement dual chamber SJM Assurity pacemaker, DDDR, lower rate 70 PPD#5 left thoracentesis, 550 ml PPD#4 right thoracentesis, 400 ml PPD#3 left heart cath Severe mitral & tricuspid insufficiency - Amenable to repair. 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 Chest tubes and TCPWs out. Antithrombotic prophylaxis as per Maze. 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 Antithrombotic prophylaxis with coumadin resumed after PPM. Remains in Afib w CVR as of POD#7, on po Amio and Metoprolol. INR 1.17. Will change Coumadin regimen to 7.5mg po daily. Acute systolic & diastolic on chronic diastolic CHF - Class III preop. Postop exacerbation by significant volume overload, moderate sized bilateral pleural effusions requiring thoracenteses, and tristan ischemia/LVSD. Mild renal insufficiency resolved with supportive care. Precautionary CT chest neg for significant residual pleural effusions. Hypervolemic hyponatremia - Patient is still up 10kg from preop weight with significant lower extremity edema. Responding slowly to fluid restriction and IV Lasix. Unable to diurese more aggressively due to patient's hypotension. Will continue to follow. Acute expected blood loss anemia -Stable with H&H 8.9/27.1 (9.0/27.5) s/p 1u PRBC postop. Patient asymptomatic with her anemia. VTE prophylaxis with SCDs and sq Heparin until INR > 1.8. On Iron. Hx CAD w preserved LV systolic fx - Preop cath notable for left dominant circulation w patent mid LCX stent, mild luminal irregs of LAD, and 20-30% mid RCA stenosis. No apparent postop ischemia but baseline post-valve repair echo concerning for reduction in LV systolic to 45% with new RWMA of inferolateral wall. LCX thrombosis verified by [facility] yest. No intervention feasible. Supportive care/standard secondary prevention planned. Home (non-formulary) statin to resume upon discharge. Disposition- SNF recommended by PT/OT. [facility]. Likely ready for discharge tomorrow. Plan: Adjust home Coumadin regimen to 7.5mg po daily due to continued subtherapeutic INR. Continue to fluid restrict. Lasix 40mg IV. [facility] when Na > 130 and closer to euvolemia. Subjective: Patient reports poor sleep last night and is requesting Melatonin. Patient reports neck pain. Objective: Vital Signs Temp Pulse Resp BP Pulse Ox 36.3 C 82 16 98/56 L 93 12/22/18 07:06 12/22/18 07:06 12/22/18 07:06 12/22/18 07:06 12/22/18 07:06 Laboratory Results 12/22/18 03:20 12/22/18 03:20 12/21/18 12/22/18 12/23/18 05:59 05:59 05:59 Intake Total 200 920 Output Total 1575 400 Balance -1375 520 PT 14.4 SEC (12.0-15.0) 12/22/18 03:20 INR 1.17 (0.83-1.16) H 12/22/18 03:20 Physical Exam - Physical Exam General Appearance: WD/WN, alert, no apparent distress Neck: supple Respiratory: lungs clear, normal breath sounds, other (No wheezing, rhonchi. ) Cardiac/Chest: irregularly irregular, other (No mumurs or rubs. Sternum stable , sternotomy c/d/i. ) Abdomen: normal bowel sounds, non-tender, soft Skin: normal color, warm/dry Extremities: other (Warm, 2+ lower extremity pitting edema. ) Neuro/Psych: alert, normal mood/affect, oriented x 3 ICD10 Worksheet Patient Problems: Problems Problem Status Onset Acute blood loss anemia Acute S/P ablation of atrial fibrillation Acute ~12/11/18 S/P left atrial appendage ligation Acute ~12/11/18 S/P mitral valve repair Acute ~12/11/18 S/P tricuspid valve repair Acute ~12/11/18 Asymmetric septal hypertrophy Chronic CAD (coronary artery disease) Chronic Chronic anticoagulation Chronic Longstanding persistent atrial fibrillation Chronic Mitral valve insufficiency Chronic KATHRYN (obstructive sleep apnea) Chronic Presence of stent in coronary artery Chronic Tricuspid valve insufficiency Chronic
[2018-12-22] MEDS ORDERED: FUROSEMIDE 40 MG/4 ML VIAL IVP ONE ×2 (08:17→21:13)
[2018-12-22] MEDS ORDERED: POTASSIUM CL 20 MEQ TAB PO ONE ×2 (08:18→21:14)
[2018-12-22] MEDS: OMEGA-3 FATTY ACIDS 1,000 MG CAP PO SCH ×2 (09:02→20:20)
[2018-12-22] MEDS: ASPIRIN 81 MG CHEWABLE TAB PO SCH (09:02)
[2018-12-22] MEDS: FERROUS SULFATE 325 MG TAB PO SCH ×2 (09:02→20:20)
[2018-12-22] MEDS: METOPROLOL TARTRATE 25 MG TAB PO SCH ×2 (09:47→22:12)
[2018-12-22] MEDS: traMADol 50 MG TAB PO PRN (11:06)
[2018-12-22] MEDS: WARFARIN SODIUM 7.5 MG TAB PO SCH (16:52)
[2018-12-22] MEDS: AMIODARONE HCL 200 MG TAB PO SCH (20:20)
[2018-12-22] MEDS: MELATONIN 3 MG TAB PO SCH (20:20)
[2018-12-23] MEDS: HEPARIN 5,000 UNIT/0.5 ML INJ SC SCH ×3 (04:33→20:28)
[2018-12-23] MEDS: traMADol 50 MG TAB PO PRN ×2 (04:33→16:41)
--- NOTE | 2018-12-23 07:26 | SOAPPROG ---
SOAP Progress Note Assessment/Plan: POD#12 complex MVRepair w #28 Physio II ring, TVA #28 MC3 ring, Gilliam-Maze 4 POD#7 placement dual chamber SJM Assurity pacemaker, DDDR, lower rate 70 PPD#6 left thoracentesis, 550 ml PPD#5 right thoracentesis, 400 ml PPD#4 left heart cath Severe mitral & tricuspid insufficiency - Amenable to repair. 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 Chest tubes and TCPWs out. Antithrombotic prophylaxis as per Maze. 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 Antithrombotic prophylaxis with coumadin resumed after PPM. Remains in Afib w CVR as of POD#7, on po Amio and Metoprolol. INR 1.17. Cont. Coumadin regimen at 7.5mg po daily. Acute systolic & diastolic on chronic diastolic CHF - Class III preop. Postop exacerbation by significant volume overload, moderate sized bilateral pleural effusions requiring thoracenteses, and tristan ischemia/LVSD. Mild renal insufficiency resolved with supportive care. Precautionary CT chest neg for significant residual pleural effusions. Hypervolemic hyponatremia - Na stable at 129. Continue IV Lasix for another day. Acute expected blood loss anemia - Will transfuse 1U PRBC this AM for low H/H and hypotension.. VTE prophylaxis with SCDs and sq Heparin until INR > 1.8. On Iron. Hx CAD w preserved LV systolic fx - Preop cath notable for left dominant circulation w patent mid LCX stent, mild luminal irregs of LAD, and 20-30% mid RCA stenosis. No apparent postop ischemia but baseline post-valve repair echo concerning for reduction in LV systolic to 45% with new RWMA of inferolateral wall. LCX thrombosis verified by [facility] yest. No intervention feasible. Supportive care/standard secondary prevention planned. Home (non-formulary) statin to resume upon discharge. Disposition- SNF Sunday. Accepted at [facility] when stable. Subjective: Denies pain/SOB. Feeling better everyday. Objective: Vital Signs Temp Pulse Resp BP Pulse Ox 36.5 C 82 18 89/52 L 96 12/23/18 06:54 12/23/18 06:54 12/23/18 06:54 12/23/18 06:54 12/23/18 06:54 Laboratory Results 04/29/19 03:05 12/23/18 03:05 12/22/18 12/23/18 12/24/18 05:59 05:59 05:59 Intake Total 920 775 Output Total 800 2950 Balance 120 -2175 PT 14.4 SEC (12.0-15.0) 12/22/18 03:20 INR 1.17 (0.83-1.16) H 12/22/18 03:20 Physical Exam - Physical Exam General Appearance: WD/WN, alert, no apparent distress EENT: No scleral icterus (R), No scleral icterus (L) Neck: normal inspection Respiratory: No respiratory distress Cardiac/Chest: irregularly irregular Abdomen: non-tender, soft, No distended Skin: normal color, warm/dry Extremities: pedal edema Neuro/Psych: no motor/sensory deficits, alert, normal mood/affect, oriented x 3 ICD10 Worksheet Patient Problems: Problems Problem Status Onset Acute blood loss anemia Acute S/P ablation of atrial fibrillation Acute ~12/11/18 S/P left atrial appendage ligation Acute ~12/11/18 S/P mitral valve repair Acute ~12/11/18 S/P tricuspid valve repair Acute ~12/11/18 Asymmetric septal hypertrophy Chronic CAD (coronary artery disease) Chronic Chronic anticoagulation Chronic Longstanding persistent atrial fibrillation Chronic Mitral valve insufficiency Chronic KATHRYN (obstructive sleep apnea) Chronic Presence of stent in coronary artery Chronic Tricuspid valve insufficiency Chronic
[2018-12-23] MEDS: ASPIRIN 81 MG CHEWABLE TAB PO SCH (08:10)
[2018-12-23] MEDS: OMEGA-3 FATTY ACIDS 1,000 MG CAP PO SCH ×2 (08:11→20:28)
[2018-12-23] MEDS: METOPROLOL TARTRATE 25 MG TAB PO SCH ×2 (08:11→20:28)
[2018-12-23] MEDS: FERROUS SULFATE 325 MG TAB PO SCH ×2 (08:11→20:28)
[2018-12-23] MEDS: POTASSIUM CL 20 MEQ TAB PO SCH ×2 (08:38→15:11)
[2018-12-23] MEDS: FUROSEMIDE 40 MG/4 ML VIAL IVP SCH ×2 (08:38→15:11)
--- NOTE | 2018-12-23 11:31 | ASMTCMCOM ---
CM Note CM Note Notes: CM reviewed pts chart. CM spoke to [facility] with [facility]. The plan is for pt to d/c to [facility] tomorrow, per Migel's note. CM sent updates to [facility]. CM to follow. Plan: [facility] Date Signed: 12/23/2018 11:30 AM Electronically Signed By:BERNA Coon
[2018-12-23 14:53] LABS: INR 1.36 (0.83-1.16); PROTIME(PATIENT) 16.2 SEC (12.0-15.0)
[2018-12-23] MEDS: WARFARIN SODIUM 7.5 MG TAB PO SCH (15:11)
[2018-12-23] MEDS: MELATONIN 3 MG TAB PO SCH (20:28)
[2018-12-23] MEDS: AMIODARONE HCL 200 MG TAB PO SCH (20:28)
[2018-12-24] MEDS: HEPARIN 5,000 UNIT/0.5 ML INJ SC SCH ×2 (06:34→15:40)
--- NOTE | 2018-12-24 06:45 | SOAPPROG ---
SOAP Progress Note Assessment/Plan: POD#13 complex MVRepair w #28 Physio II ring, TVA #28 MC3 ring, Gilliam-Maze 4 POD#8 placement dual chamber SJM Assurity pacemaker, DDDR, lower rate 70 PPD#7 left thoracentesis, 550 ml PPD#6 right thoracentesis, 400 ml PPD#5 left heart cath Severe mitral & tricuspid insufficiency - Amenable to repair. Antithrombotic prophylaxis as per Maze. 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 Antithrombotic prophylaxis with Coumadin, INR goal 2-3, duration as per CM protocol. Acute systolic & diastolic on chronic diastolic CHF - Class III preop. Postop exacerbation by significant volume overload, moderate sized bilateral pleural effusions requiring thoracenteses, and tristan ischemia/LVSD. Mild renal insufficiency resolved with supportive care. Precautionary CT chest neg for significant residual pleural effusions. Hypervolemic hyponatremia - Stable. Acute expected blood loss anemia - stable s/p 2U PRBCs. Hx CAD w preserved LV systolic fx - Preop cath notable for left dominant circulation w patent mid LCX stent, mild luminal irregs of LAD, and 20-30% mid RCA stenosis. No apparent postop ischemia but baseline post-valve repair echo concerning for reduction in LV systolic to 45% with new RWMA of inferolateral wall. LCX thrombosis verified by [facility]. No intervention feasible. Supportive care/ standard secondary prevention planned. Statin to resume upon discharge. DVT prophylaxis - heparin SQ/SCDs. Disposition- [facility] today. Subjective: Feels well. Denies pain/SOB. Swelling feels much improved. Happy to be discharged. Objective: Vital Signs Temp Pulse Resp BP Pulse Ox 36.5 C 87 20 111/21 L 95 12/24/18 04:00 12/24/18 04:00 12/24/18 04:00 12/24/18 04:00 12/24/18 04:00 Laboratory Results 12/23/18 03:05 12/23/18 03:05 12/23/18 12/24/18 12/25/18 05:59 05:59 05:59 Intake Total 775 1575 Output Total 2950 2500 Balance -2175 -925 PT 16.2 SEC (12.0-15.0) H 12/23/18 13:00 INR 1.36 (0.83-1.16) H 12/23/18 13:00 Physical Exam - Physical Exam General Appearance: WD/WN, alert, no apparent distress EENT: No scleral icterus (R), No scleral icterus (L) Neck: normal inspection Respiratory: No respiratory distress Cardiac/Chest: irregularly irregular Abdomen: non-tender, soft, No distended Skin: normal color, warm/dry Extremities: pedal edema Neuro/Psych: no motor/sensory deficits, alert, normal mood/affect, oriented x 3 ICD10 Worksheet Patient Problems: Problems Problem Status Onset Acute blood loss anemia Acute S/P ablation of atrial fibrillation Acute ~12/11/18 S/P left atrial appendage ligation Acute ~12/11/18 S/P mitral valve repair Acute ~12/11/18 S/P tricuspid valve repair Acute ~12/11/18 Asymmetric septal hypertrophy Chronic CAD (coronary artery disease) Chronic Chronic anticoagulation Chronic Longstanding persistent atrial fibrillation Chronic Mitral valve insufficiency Chronic KATHRYN (obstructive sleep apnea) Chronic Presence of stent in coronary artery Chronic Tricuspid valve insufficiency Chronic
[2018-12-24 08:23] LABS: INR 1.47 (0.83-1.16); PROTIME(PATIENT) 17.2 SEC (12.0-15.0)
--- NOTE | 2018-12-24 08:49 | PDIAF ---
- Diagnosis Diagnosis: complex MVRepair w #28 Physio ring, TVA #28 MC3 ring, CM 4, PPM placement Code Status: Full Code - Medication Management Discharge Medications: electronically signed and located in the Home Medication List. PICC Care - Routine: N/A - Orders Services needed: Registered Nurse, Certified Bunghole Borer, Master [place] , Physical Therapy, Occupational Therapy Oxygen: 2 LPM Diet Recommendation: cardiac -low fat low salt, fluid restriction (use comment for amount) (1.5 L per day) Diet Texture: Regular Texture Diet, Thin Liquids, Meds Whole w/Liquids Weigh Patient: daily Velasquez: No Additional Instructions: Pacemaker Instructions: 1. Left pectoral incision madhav should be removed in 1 week (12/24/2018) - this can be done by the skilled-nursing facility staff or with our Device Clinic at [facility] 2. Do not lift left arm above the level of the shoulder, put it behind your back , or push/pull/lift more than 5lbs for 4 weeks 3. Keep the left pectoral dressing clean and dry. If it becomes wet for any reason, please remove the dressing and leave the incision open to air 4. Follow-up with Ra in 4-6 weeks Open Heart Surgery Discharge Instructions: Call [facility] cardiac rehab to enroll in phase 2 classes if not already arranged. Sternal precautions x 4 weeks. Avoid lifting > 10lbs with an outstretched arm. Avoid push/pull activities. No driving until cleared by surgery. Elevate low legs at rest. Avoid prolonged standing or dangling. Cleanse wounds once daily with soap and water. Avoid immersion (pool, hot tub, bath) until fully healed. Leave all wounds open to air. Avoid creams or ointments until fully healed. Log daily vital signs once home: weight, heart rate, blood pressure, and pulse oximetry if on oxygen. Call [facility] for weight gain > 5lbs or worsening leg swelling. Call [facility] for resting heart rate > 120 OR < 50. Call [facility] for systolic blood pressure consistently < 85 or > 150. Ok to use [id number] medications for bowel function or pain. Try to use ibuprofen minimally if on Coumadin. Chest x-ray Instructions: Please obtain a chest xray prior to surgical appointment. Chest x-rays dont require an appointment. Come to the Emergency Room entrance at the [facility] location. Sign in at the computer kiosk in the entryway. You will be given a number and may sit in the waiting area until called. You will be registered and directed to the Imaging desk on the 1st floor. This process can take up to an hour. Make sure you allow enough time before your appointment to have your x-ray taken. - Labs/Radiology PT/INR Date: 12/25/18 (Measure daily (INR goal 2-3)) Imaging Orders: CXR at [facility] on 01/01 prior to surgical appointment - Follow Up Care Current Providers and Referrals: Ra Jacques CNP [Certified Nurse Practioner] - (4-6 weeks ) Prerna Irvin MD [Primary Care Provider] - Sly Baxter DO [Doctor of Osteopathy] - 01/01/19 10:45 am Sly Campos MD [Medical Doctor] - (Follow up at [facility] in 6 weeks. Appointment to be established at surgical visit)
--- NOTE | 2018-12-24 08:51 | PDDCSUM ---
Discharge Summary Discharge Summary: ADMISSION DATE: 12/10/18 DISCHARGE DATE: 12/24/18 ADMISSION DIAGNOSES 1. Severe mitral & tricuspid insufficiency 2. Longstanding persistent atrial fibrillation 3. Acute systolic/diastolic on chronic class III diastolic CHF 4. CAD w preserved LV systolic fx DISCHARGE DIAGNOSES 1. As above 2. Acute post-op blood loss anemia 3. Hyponatremia 4. Post-op posterior myocardial infarction PROCEDURES 1. 12/11/18 (Vee): complex MV Repair with #28 Physio II ring, TVA #28 with MC3 ring, Gilliam-Maze 4 2. 12/16/18 (Franc): Implantation of SJM Assurity PPM 3. 12/17/18 (radiology): left thoracentesis, 550 ml 4. 12/18/18 (radiology): right thoracentesis, 400 ml 5. 12/19/18 (Xavier): [facility] HPI 58F with severe MR/TR, LSPAF and chronic class III diastolic CHF admitted for elective open heart surgery. HOSPITAL COURSE BY PROBLEM LIST 1. Severe mitral & tricuspid insufficiency - Amenable to repair. Antithrombotic prophylaxis as per Maze protocol. 2. 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 Post PPM rhythm predominately rate controlled AF. Antithrombotic prophylaxis with Coumadin, INR goal 2-3, duration as per CM protocol. Continue amiodarone for AF rate prophylaxis. Beta- justin stopped d/t low blood pressure. 3. Acute systolic/diastolic on chronic class III diastolic CHF - BL post-op pleural effusions drained. Torsemide prescribed on discharge. Beta-justin stopped d/t low BP. Consider additional HF meds if BP tolerates. 4. CAD w preserved LV systolic fx with post-op posterior MN - pre-op LHC notable for left dominant circulation w patent mid LCX stent, mild luminal irregs of LAD, and 20-30% mid RCA stenosis. No apparent postop ischemia but baseline post-valve repair echo concerning for reduction in LV systolic to 45% with new RWMA of inferolateral wall. LCX thrombosis verified by [facility]. No intervention feasible. Continue ASA/statin for secondary prevention. Beta- justin stopped d/t low BP. Further mgmt as per cardiology. 5. Acute post-op blood loss anemia - stable s/p 2U PRBCs. 6. Hyponatremia - lowest level 125 with steady increase over hospitalization. Monitor. CONDITION Good DISPOSITION [facility] in [place] PERTINENT DISCHARGE CLINICAL INFORMATION Vitals: 103/62, 85 AF, 94% on 2 LPM O2, +8 Kg Exam: NAD, AF, No respiratory distress, ND, soft, NTP, BLE with +2 edema ACTIVITY Pt was instructed on activity limitations and which problems to call [facility] with. Please see Discharge Plan in chart for specifics. DISCHARGE MEDICATIONS As per Home Medication List in [facility] PENDING STUDIES/LABS 1. CXR and BMP prior to surgical follow-up 2. Daily INR at SNF FOLLOW-UP 1. Broderick Boykin (CT Surgery), 01/01/19, 10:45 AM 2. Sly Campos(Cardiology), to be arranged at surgical f/u 3. Pacemaker clinic, as directed
[2018-12-24] MEDS ORDERED: POTASSIUM CL 20 MEQ TAB PO SCH (09:00)
[2018-12-24] MEDS ORDERED: TORSEMIDE 20 MG TAB PO SCH (09:00)
[2018-12-24] MEDS: ASPIRIN 81 MG CHEWABLE TAB PO SCH (09:03)
[2018-12-24] MEDS: OMEGA-3 FATTY ACIDS 1,000 MG CAP PO SCH (09:03)
[2018-12-24] MEDS: FERROUS SULFATE 325 MG TAB PO SCH (09:04)
--- NOTE | 2018-12-24 09:06 | PDIAF ---
- Diagnosis Diagnosis: complex MVRepair w #28 Physio ring, TVA #28 MC3 ring, CM 4, PPM placement Code Status: Full Code - Medication Management Discharge Medications: electronically signed and located in the Home Medication List. PICC Care - Routine: N/A - Orders Services needed: Registered Nurse, Certified Manager Research And Development, Master Early Childhood Director , Physical Therapy, Occupational Therapy Oxygen: 2 LPM Diet Recommendation: cardiac -low fat low salt, fluid restriction (use comment for amount) (1.5 L per day) Diet Texture: Regular Texture Diet, Thin Liquids, Meds Whole w/Liquids Weigh Patient: daily Velasquez: No Additional Instructions: Pacemaker Instructions: 1. Left pectoral incision madhav should be removed in 1 week (12/24/2018) - this can be done by the skilled-nursing facility staff or with our Device Clinic at [facility] 2. Do not lift left arm above the level of the shoulder, put it behind your back , or push/pull/lift more than 5lbs for 4 weeks 3. Keep the left pectoral dressing clean and dry. If it becomes wet for any reason, please remove the dressing and leave the incision open to air 4. Follow-up with Ra in 4-6 weeks Open Heart Surgery Discharge Instructions: Call [facility] cardiac rehab to enroll in phase 2 classes if not already arranged. Sternal precautions x 4 weeks. Avoid lifting > 10lbs with an outstretched arm. Avoid push/pull activities. No driving until cleared by surgery. Elevate low legs at rest. Avoid prolonged standing or dangling. Cleanse wounds once daily with soap and water. Avoid immersion (pool, hot tub, bath) until fully healed. Leave all wounds open to air. Avoid creams or ointments until fully healed. Log daily vital signs once home: weight, heart rate, blood pressure, and pulse oximetry if on oxygen. Call [facility] for weight gain > 5lbs or worsening leg swelling. Call [facility] for resting heart rate > 120 OR < 50. Call [facility] for systolic blood pressure consistently < 85 or > 150. Ok to use [id number] medications for bowel function or pain. Try to use ibuprofen minimally if on Coumadin. Chest x-ray Instructions: Please obtain a chest xray prior to surgical appointment. Chest x-rays dont require an appointment. Come to the Emergency Room entrance at the [facility] location. Sign in at the computer kiosk in the entryway. You will be given a number and may sit in the waiting area until called. You will be registered and directed to the Imaging desk on the 1st floor. This process can take up to an hour. Make sure you allow enough time before your appointment to have your x-ray taken. - Labs/Radiology BMP Date: 12/01/18 PT/INR Date: 12/25/18 (Measure daily (INR goal 2-3)) Imaging Orders: CXR at [facility] on 01/01 prior to surgical appointment - Follow Up Care Current Providers and Referrals: Ra Jacques CNP [Certified Nurse Practioner] - (4-6 weeks ) Prerna Irvin MD [Primary Care Provider] - Sly Baxter DO [Doctor of Osteopathy] - 01/01/19 10:45 am Sly Campos MD [Medical Doctor] - (Follow up at [facility] in 6 weeks. Appointment to be established at surgical visit)
[2018-12-24] MEDS: METOPROLOL TARTRATE 25 MG TAB PO SCH (09:10)
--- NOTE | 2018-12-24 12:35 | ASMTDCNOTE ---
Case Management Discharge Discharge Order Complete? Answers: Yes Patient to Obtain Answers: Other Notes: [facility] - [facility] Medications Transportation Arranged Answers: Other Notes: Maryjane Wyman w/c transport Transport will Pick (Date 12/24/2018 04:30 PM & Time) EMTALA Complete Answers: No Case Management Transport Answers: No Form Complete Faxed Final Orders Answers: Yes Agency/Facility Transfer Answers: Yes Report Printed & Faxed to Receiving Agency Family Notified Answers: Yes Discharge Comments Notes: Pts case discussed w/ JENNIFER Lainez. Pt is being d/c'd today. DC orders sent to [facility]. CM notified pts daughter Daniela of the d/c. Martita RN will call to give report. CM available for changes. Plan: [facility] Date Signed: 12/24/2018 12:34 PM Electronically Signed By:BERNA Coon
--- NOTE | 2018-12-24 12:35 | ASDISCHSUM ---
Discharge Information Plan Status:SNF Medically Cleared to Leave:12/24/2018 Discharge Date:12/24/2018 CM D/C Disposition: ADT D/C Disposition:Long-Term Facility Projected Discharge Date:12/24/2018 11:00 AM Transportation at D/C: Discharge Delay Reason: Follow-Up Date:12/24/2018 11:00 AM Discharge Slot: Final Diagnosis: Placement Information Referral Type:*Retirement/SNF Referral ID:[id number] Provider Name:[facility] Address 1:[address] [place] [address] Address 2: City:[place] Selection Factors: State:[place] Patient Contact Information Contact Name:ROSALINE Relationship:Daughter Address: Work Phone: City: [facility] Phone: [facility]/Zip Code: Email: Financial Information Financial Class:Medicare Advantage Plans Primary Plan Desc:[facility] sfilatino Primary Plan Number:[id number] Secondary Plan Desc: Secondary Plan Number: Assessment Information LACE LACE Length of stay for Answers: 14 days or more current admission Acuity / Level of Answers: Yes Care: Did the patient have an inpatient admission? Comorbidities - select Answers: Cerebrovascular disease all that apply (CVA, TIA, aneurysms, vasc ular dementia) Congestive heart failure Coronary Artery Disease Opioid dependence / Chronic pain Other Notes: HTN; AFib # of Emergency department Answers: 0 visits in the last 6 months Score: 20 Date Signed: 12/24/2018 12:32 PM Electronically Signed By:BERNA Coon [facility] Initial CM Assessment Living Arrangements What is your living Answers: Alone arrangement? Who do you live with? Type Of Residence What kind of residence do Answers: Apartment you live in? Discharge Plan Comments Coordination Status Comments Notes: Patient is a 78yo female with chronic mitral regurgitation status post endocarditis over 10 years ago, who comes for preoperative left heart catheterization prior to mitral valve replacement, tricuspid ring and escalante maze procedure. PT/OT have been ordered for the patient. D/C plan TBD. CM will follow. Date Signed: 12/12/2018 12:00 PM Electronically Signed By:Kajal Wallis LCSW [facility] JILL Progress Note CM Note JILL Note Notes: Spoke with patient today and she would like to go to [facility] for SNF rehab. She prefers this program because it is close to her home and her friends and family can come visit. Patient's second choice is [facility]. Referrals have been sent to both facilities. CM will follow. Date Signed: 12/13/2018 03:43 PM Electronically Signed By:Kajal Wallis LCSW [facility] JILL Progress Note CM Monika MELCHOR Note Notes: 12/18/2018 Case Management Note Faxed updates to [facility] via [employer]. [facility] accepted pt. [facility] declined pt. Case Management d/c poc: [facility] SNF rehab when medically ready. Case Management to follow. Date Signed: 12/18/2018 11:52 AM Electronically Signed By:Carmen Olmos RN [facility] CM Progress Note CM Note CM Note Notes: CM faxed updates to the [facility]. CM spoke to Paula from [facility] about potential discharge date. Plan: [facility] rehab when medically ready CM to follow Date Signed: 12/20/2018 02:08 PM Electronically Signed By:Nitza Puentes [facility] CM Progress Note CM Note CM Note Notes: CM reviewed pts chart. CM spoke to [facility] with [facility]. The plan is for pt to d/c to [facility] tomorrow, per Migel's note. CM sent updates to [facility]. CM to follow. Plan: [facility] Date Signed: 12/23/2018 11:30 AM Electronically Signed By:BERNA Coon Case Management Discharge Plan Note Case Management Discharge Discharge Order Complete? Answers: Yes Patient to Obtain Answers: Other Notes: [facility] Medications Transportation Arranged Answers: Other Notes: Maryjane Wyman w/c transport Transport will Pick (Date 12/24/2018 04:30 PM & Time) LYNDSEY Complete Answers: No Case Management Transport Answers: No Form Complete Faxed Final Orders Answers: Yes Agency/Facility Transfer Answers: Yes Report Printed & Faxed to Receiving Agency Family Notified Answers: Yes Discharge Comments Notes: Pts case discussed w/ JENNIFER Lainez. Pt is being d/c'd today. DC orders sent to [facility]. CM notified pts daughter Daniela of the d/c. Martita RN will call to give report. CM available for changes. Plan: [facility] SNF Date Signed: 12/24/2018 12:34 PM Electronically Signed By:BENRA Coon Intervention Information Intervention Type:*IM-Signed Date of Service:12/20/2018 02:40 PM Patient Type:Inpatient Staff Member:Lena Muñiz Hours: Discipline: Severity: Comment:
[2018-12-24 15:38] VITALS: BP 100/54
[2018-12-24] MEDS: WARFARIN SODIUM 7.5 MG TAB PO SCH (16:34)
== END 2018-12-24 16:36 | DRG 216 ==
LOC: FCATH 11:39 → F2W 15:34 → F2N 12-11 08:17 → F2W 12-16 12:37
PROVIDERS: ADMIT Thoracic Surgery (Cardiothoracic Vascular Surgery); ATTEND Thoracic Surgery (Cardiothoracic Vascular Surgery)
PROC: B2151ZZ Fluoroscopy of Left Heart using Low Osmolar Contrast (ICD-10-PCS; 2018-12-10)
PROC: B2111ZZ Fluoroscopy of Multiple Coronary Arteries using Low Osmolar Contrast (ICD-10-PCS; 2018-12-10)
PROC: 30233N1 Transfusion of Nonautologous Red Blood Cells into Peripheral Vein, Percutaneous Approach (ICD-10-PCS; 2018-12-11)
PROC: 5A1221Z Performance of Cardiac Output, Continuous (ICD-10-PCS; principal; 2018-12-11 08:45)
PROC: 02580ZZ Destruction of Conduction Mechanism, Open Approach (ICD-10-PCS; principal; 2018-12-11 08:45)
PROC: 02L70CK Occlusion of Left Atrial Appendage with Extraluminal Device, Open Approach (ICD-10-PCS; principal; 2018-12-11 08:45)
PROC: 02UG0JZ Supplement Mitral Valve with Synthetic Substitute, Open Approach (ICD-10-PCS; principal; 2018-12-11 08:45)
PROC: 02UJ0JZ Supplement Tricuspid Valve with Synthetic Substitute, Open Approach (ICD-10-PCS; principal; 2018-12-11 08:45)
PROC: 02H63JZ Insertion of Pacemaker Lead into Right Atrium, Percutaneous Approach (ICD-10-PCS; 2018-12-16)
PROC: 0JH606Z Insertion of Pacemaker, Dual Chamber into Chest Subcutaneous Tissue and Fascia, Open Approach (ICD-10-PCS; 2018-12-16)
PROC: 02HK0JZ Insertion of Pacemaker Lead into Right Ventricle, Open Approach (ICD-10-PCS; 2018-12-16)
PROC: 0W9B3ZZ Drainage of Left Pleural Cavity, Percutaneous Approach (ICD-10-PCS; 2018-12-17)
PROC: 0W993ZZ Drainage of Right Pleural Cavity, Percutaneous Approach (ICD-10-PCS; 2018-12-18)
PROC: 4A023N8 Measurement of Cardiac Sampling and Pressure, Bilateral, Percutaneous Approach (ICD-10-PCS; 2018-12-19)
PROC: B2111ZZ Fluoroscopy of Multiple Coronary Arteries using Low Osmolar Contrast (ICD-10-PCS; 2018-12-19)
PROC: B2151ZZ Fluoroscopy of Left Heart using Low Osmolar Contrast (ICD-10-PCS; 2018-12-19)
DX: I34.0 Nonrheumatic mitral (valve) insufficiency (principal); I11.0 Hypertensive heart disease with heart failure; I50.43 Acute on chronic combined systolic (congestive) and diastolic (congestive) heart failure; I21.A9 Other myocardial infarction type; D62 Acute posthemorrhagic anemia; E87.1 Hypo-osmolality and hyponatremia; I97.190 Other postprocedural cardiac functional disturbances following cardiac surgery; J90 Pleural effusion, not elsewhere classified; I45.5 Other specified heart block; I36.1 Nonrheumatic tricuspid (valve) insufficiency; I48.2 Chronic atrial fibrillation; I25.10 Atherosclerotic heart disease of native coronary artery without angina pectoris; I27.20 Pulmonary hypertension, unspecified; E78.5 Hyperlipidemia, unspecified; G47.33 Obstructive sleep apnea (adult) (pediatric); Z86.73 Personal history of transient ischemic attack (TIA), and cerebral infarction without residual deficits
CPT/HCPCS: 82435-PO; 82565-PO; 82947-PO; 84132-PO; 84295-PO; 84520-PO; 85014-ER; 97110-GP; 97116-GP; 97161-GP; 97166-GO; 97530-GO; 97530-GP; 97535-GO; C1725; C1769; C1785; C1887; C1898; J0153; J0282; J0690; J1265; J1644; J1815; J1885; J1940; J2001; J2150; J2250; J2260; J2270; J2370; J2405; J2704; J2720; J2765; J2930; J3010; J3475; J3480; P9016; P9040; P9041; Q9967

== ENCOUNTER → 2019-01-01 | Outpatient (CLI) | payer OTHER | LOC: FIMAGING 09:26 | PROVIDERS: ATTEND Thoracic Surgery (Cardiothoracic Vascular Surgery) | DX: J90 Pleural effusion, not elsewhere classified (principal); J98.11 Atelectasis; Z86.79 Personal history of other diseases of the circulatory system; Z95.2 Presence of prosthetic heart valve; Z95.0 Presence of cardiac pacemaker; Z98.890 Other specified postprocedural states ==

== ENCOUNTER → 2019-01-02 | Outpatient (CLI) | payer OTHER ==
[~2019-01-02] MED LIST: LIDOCAINE 1% 300 MG/30 ML SDV ONE
== END ==
LOC: FIMAGING 13:50
PROVIDERS: ATTEND Thoracic Surgery (Cardiothoracic Vascular Surgery)
DX: Z01.818 Encounter for other preprocedural examination (principal); J90 Pleural effusion, not elsewhere classified; Z86.79 Personal history of other diseases of the circulatory system; Z98.890 Other specified postprocedural states

== ENCOUNTER → 2019-01-07 | Outpatient (CLI) | payer OTHER | LOC: FIMAGING 09:16 | PROVIDERS: ATTEND Thoracic Surgery (Cardiothoracic Vascular Surgery) | DX: Z09 Encounter for follow-up examination after completed treatment for conditions other than malignant neoplasm (principal); Z86.79 Personal history of other diseases of the circulatory system; Z98.890 Other specified postprocedural states; Z95.0 Presence of cardiac pacemaker ==